=== PATIENT | female | born 1940 | race Caucasian/White ===

== ENCOUNTER 2019-11-07 17:22 | Inpatient (IN) | payer OTHER ==
--- NOTE | 2019-11-07 15:39 | R.PREADM ---
SCREENING DATE AND TIME 11/07/2019 14:15 (CDT) ANTICIPATED REHAB ADMISSION DATE 11/09/2019 REFERRING FACILITY [facility] REFERRAL DATE AND TIME 11/07/2019 14:15 (CDT) REFERRAL OFFICE PHONE [phone] REFERRAL ROOM# [id number] ACUTE ADMIT DATE 11/01/2019 Previous Rehabilitation(s): No. 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 CLINICAL LIAISON a[place]cy Hall PHYSICIAN REVIEWER Dr. Marlon Barney M.D. MR# [id number] NAME PORSHA MARTINEZ ADDRESS [address] [place] [address] [address] [facility] PHONE [facility] [id number] DATE OF 1940 AGE 78 SSN# [id number] GENDER female MARITAL STATUS RACE white ADMIT FROM 02 - [facility] PRE-HOSPITAL LIVING SETTING 01 - Home (private home/apt. board/care, assisted living, skilled nursing, transitional living) HOME TYPE AND DETAILS Type of home: single family house # of levels in the residence: 1 # of steps within the residence: 0 # of steps to enter the residence: 0 PRE-HOSPITAL LIVING WITH Alone FAMILY SUPPORT No PRIMARY FAMILY CONTACT NAME GUY CHEN PRIMARY FAMILY CONTACT PHONE PHONE PRIMARY FAMILY CONTACT ON ADM.? no IS PRIMARY FAMILY CONTACT AUTH. REP.? no 1ST EMERGENCY CONTACT GUY CHEN 1ST CONTACT PHONE PHONE 1ST CONTACT ON ADM. no IS 1ST CONTACT AUTH. REP.? no PHONE 2ND CONTACT ON ADM.? no PATIENT EMPLOYMENT STATUS Retired (for age) PATIENT EMPLOYER No Employer PAYOR INFORMATION: 1ST PAYOR NAME [facility] 1ST PAYOR PHONE [phone] 1ST PAYOR INJURY/ILLNESS DUE TO ACCIDENT? No ANOTHER GREEN PARTY RESPONSIBLE? No PRIMARY REHAB/ACUTE DIAGNOSIS: DVT REHAB IMPAIRMENT CATEGORY (ANGEL): 20 Miscellaneous (Misc) does NOT meet 60% rule PRIMARY DIAGNOSIS-RELATED SURGERIES: No surgeries related to the primary diagnosis were performed. SUMMARY OF ACUTE HOSPITALIZATION: Pt. is a 78 yo Right-handed white female. On 11/01/2019 she was admitted to [facility] with diagnosis DVT. Her impairment category is Debility 16 - Debility (16). Pre-morbidly, Pt. was independent/mod-I in Safety Awareness, Social Cognition, Transfers Control, and Sphincter Control; and she had good Communication and Safety Awareness. Currently, she has deficits of Safety Awareness, Self-Care, Endurance, Locomotion, and Sphincter Cont rol. Pt. is now referred to [facility] for acute in-patient rehabilitation in order to maximize patient's functional independence in activities of daily living, strength, ROM, and mobi lity. Patient has realistic goal of being discharged at assistance level 6-Chase to reside at Home with Pt self. Porsha Martinez is a 78 year old female who lives at home independently. She has pmh of lower extremity, DVT, back pain and depression who presented to the emergency room secondary to right upper extremity swelling and tenderness. Cellulitis of the right arm. Patient was found to have an acute left popliteal DVT as well as nonpurulent cellulitis. She was Admitted at [facility] on 11/01/19.Patient states that she was adherent to her antibiotics when she went home from her first ER visit. She is now being transferred to [facility] Inpatient rehabilitation and is medically stable with relatively stable labs. He is now medically stable but in need of 24 hour nursing, doctor supervision and oversight while receiving active and ongoing intensive hours of therapy a day/15 hours per week and receive care with intensive interdisciplinary approach. COVID-19 screening performed; spoke with patient via phone. Patient denies new onset of fever, cough, difficulty breathing, sore throat, body aches and non-allergy nasal congestion in the past 24 hours. Patient denies travel outside of [place] in the past 14 days. Patient denies any contact with someone who has a confirmed diagnosis of or is under investigation for COVID-19 in the past 14 days. Patient has been tested negative for COVID- 19. PAST MEDICAL HISTORY BACK PAIN PAST SURGICAL HISTORY: BACK SURGERY INTRATHECAL INFUSION PUMP REVISION MEDICATION ALLERGIES: No Known Drug Allergies (NKDA) ENVIRONMENTAL ALLERGIES: - Substance Allergies None Known - Other Allergies None Known CODE STATUS: Full code WEIGHT/HEIGHT/BMI: WEIGHT 200 lbs HEIGHT 5' 11" BMI 27.9 DIET: - Diet Type Regular - Diet - Solid Texture Regular - Diet - Liquid Texture Regular - Tube Feed N/A REVIEW OF SYSTEMS: - Gen Alert and awake Lying in bed No apparent distress Oriented to: person, time, and place - Vital Signs Temperature: 98.8 F SBP/DBP: 160/69 Pulse: 85 Resp: 20 Vital signs stable, afebrile - CVS RRR VITAL SIGNS Temperature: 98.8 F SBP/DBP: 160/69 Pulse: 85 Resp: 20 Vital signs stable, afebrile [id number]].pdf MEDICATIONS/TREATMENT: Other- See attached MAR (Medication Administration Record). CURRENT SPHINCTER CONTROL: Pre-hospital bladder status: unspecified # of bladder accidents in the last 7 days prior to screenin Pre-hospital bowel status: unspecified # of bowel accidents in the last 7 days prior to screenin Last Bowel Movement Date: 11/07/2019 CURRENT LOCOMOTION STATUS: distance walked 3 feet DETAILED CURRENT FUNCTIONAL STATUS: - Bladder accident frequency: Ind - No accidents in the past 7 days - Bowel accident frequency: Ind - No accidents in the past 7 days - Walking score based on distance walked: 0(N/A) score based on distance walked: 1(<=50ft) - Wheelchair score based on distance traveled: 0(N/A) QI SCORES: - Self-Care A. Eating 03-Partial/moderate assistance B. Oral hygiene 03-Partial/moderate assistance C. Toileting hygiene 03-Partial/moderate assistance E. Shower/bathe self 03-Partial/moderate assistance F. Upper body dressing 03-Partial/moderate assistance G. Lower body dressing 02-Substantial/maximal assistance H. Putting on/taking off footwear 88-Not attempted due to medical condition or safety concerns - Mobility A. Roll left and right 03-Partial/moderate assistance B. Sit to lying 03-Partial/moderate assistance C. Lying to sitting on side of bed 03-Partial/moderate assistance D. Sit to stand 03-Partial/moderate assistance E. Chair/fyd-ka-idvye transfer 03-Partial/moderate assistance F. Toilet transfer 03-Partial/moderate assistance G. Car transfer 88-Not attempted due to medical condition or safety concerns I. Walk 10 feet 88-Not attempted due to medical condition or safety concerns J. Walk 50 feet with two turns 88-Not attempted due to medical condition or safety concerns K. Walk 150 feet 88-Not attempted due to medical condition or safety concerns L. Walking 10 feet on uneven surfaces 88-Not attempted due to medical condition or safety concerns M. 1 step (curb) 88-Not attempted due to medical condition or safety concerns N. 4 steps 88-Not attempted due to medical condition or safety concerns O. 12 steps 88-Not attempted due to medical condition or safety concerns P. Picking up object 03-Partial/moderate assistance R. Wheel 50 feet with two turns 88-Not attempted due to medical condition or safety concerns S. Wheel 150 feet 10-Not attempted due to environmental limitations - Bladder and Bowel Bladder continence 0-Always continent Bowel continence 0-Always continent - Endurance Fair - Balance Fair - Safety Awareness Fair CURRENT FUNC. DEFICITS: Self-Care, Safety Awareness, Endurance, Balance, and Mobility CURRENT / PREVIOUS ASSISTIVE DEVICES: Hospital Bed Rolling Walker Shower Chair HISTORY OF FALLS. HAS THE PATIENT HAD TWO OR MORE FALLS IN THE PAST YEAR OR ANY FALL WITH INJURY IN T HE PAST YEAR?: No PRIOR SURGERY. DID THE PATIENT HAVE MAJOR SURGERY DURING THE 100 DAYS PRIOR TO ADMISSION?: No THERAPY NOTES FROM ACUTE CARE: Attached. SPECIAL NEEDS: - Safety Concerns Skin breakdown precautions needed due to skin breakdown risk PATIENT NEEDS ACTIVE AND ONGOING THERAPEUTIC INTERVENTION OF MULTIPLE THERAPY DISCIPLINES, INCLUDING: - Dietary and Nutrition Adequate Nutrition. Nutritional Education. Nutritional Supplements. PATIENT NEEDS CLOSE MEDICAL SUPERVISION BY A REHABILITATION PHYSICIAN FOR: Coordination of Treatment Team PATIENT REQUIRES 24X7 REHAB NURSING FOR MEDICAL AND FUNCTIONAL MGT. OF THE FOLLOWING DEFICITS: Disease Management Medication Management Patient/Family Education Providing Safe Environment PATIENT REQUIRES INTENSIVE, COORDINATED INTERDISCIPLINARY APPROACH TO REHAB: Arranging Home Equipment/Services Discharge Planning Family Intervention/Training Staff Physical Therapy Assistant/Case Management PATIENT REHAB POTENTIAL: Prerna MARTINEZ is able and expected to receive 3 hours of individualized therapy daily on at least 5 of nanette ry 7 days Prerna MARTINEZ's prognosis for significant practical improvement within a reasonable period of time appears Good Expected level of measurable improvement will be of a practical value to Prerna MARTINEZ's functional capaci ty or adaptations to impairments Has a viable Discharge Plan Medically appropriate; condition is sufficiently stable to participate in intensive rehab program DISCHARGE PLAN: - Estimated Length of Stay (days) 13. - Consensus on plan Discharge plan has been discussed with primary caregiver. Patient/Family is in agreement with the lance n. Primary caregiver is in agreement with the plan. - Patient/Family Goals Return home independently. - Planned Living Setting Upon Discharge Home, to live alone. Transitional Living. Primary caregiver: Pt self. RECOMMENDED CARE LEVEL: IRF RECOMMENDATION DETAILS: Recommended Admission to Comprehensive Rehabilitation Program to Increase Functional [place] SCREENER'S COMPLETENESS CONFIRMATION: - Screening Confirmation The patient data collection on this preadmission screening form is finished PHYSICIANS REVIEW AND ADMISSION DETERMINATION Admit - Based on my review of the Pre-Admission Screening results, in my medical judgment and experie nce, I concur with the findings and recommend admission to [facility], as this patient requires an IRF level of care. SIGNATURE PANEL: Player Development Manager - [electronically] signed by Yancy Hall on 11/07/2019 at 15:17 (CDT) Player Development Manager - [electronically] signed by Yancy Hall on 11/07/2019 at 15:13 (CDT) Player Development Manager - [electronically] signed by Yeison Walters PT on 11/07/2019 at 15:23 (CDT) Physician Reviewer - [electronically] signed by Dr. Marlon Barney M.D. on 11/07/2019 at 15:37 (CDT )
[2019-11-07 19:20] LABS: Urine Appearance CLOUDY; Urine Bilirubin NEGATIVE (NEG); Urine Blood 1+ (NEG); Urine Color YELLOW; Urine Glucose NEGATIVE (NEG); Urine Protein NEGATIVE (NEG); Urine Specific Gravity 1.015 (1.005-1.030); Urine Urobilinogen 0.2 mg/dL (0.2-1.0)
[2019-11-07 19:53] LABS: Urine Bacteria <20 /HPF (<20); Urine Culture Reflex Order NOT NEEDED; Urine Mucus 2+ /HPF (NONE SEEN)
[2019-11-07] MEDS: TRAMADOL HCL 50 MG TAB PO PRN (20:37)
[2019-11-07] MEDS: LACTOBACILLUS/ACIDOPHILUS TAB PO SCH (20:37)
[2019-11-07] MEDS: MELATONIN 3 MG TABLET PO SCH (20:38)
[2019-11-07] MEDS: DOXYCYCLINE 100 MG CAP PO SCH (20:38)
[2019-11-07] MEDS: GABAPENTIN 300 MG CAP PO SCH (23:21)
[2019-11-08] MEDS: TRAMADOL HCL 50 MG TAB PO PRN ×3 (02:16→19:34)
[2019-11-08 06:14] LABS: Absolute Lymphocytes (CBC) 4.4 K/uL (0.7-4.9); Basophils % 1.1 % (0-1.3); Hematocrit 34.1 % (36.0-45.0); Lymphocytes % 44.4 % (15.3-44.8); MPV 8.2 fL (7.6-11.3); RBC Red Blood Cell Count 3.88 M/uL (3.86-4.86)
[2019-11-08] MEDS: HYDROCODONE/APAP 5/325 MG TAB PO PRN ×3 (06:24→23:44)
[2019-11-08 06:28] LABS: Albumin 2.8 g/dL (3.4-5.0); Magnesium 2.1 mg/dL (1.8-2.4); Potassium 4.2 mmol/L (3.5-5.1); Prealbumin 19.1 mg/dL (20-40)
[2019-11-08] MEDS: APIXABAN 5 MG TABLET PO SCH ×2 (08:28→19:34)
[2019-11-08] MEDS: LACTOBACILLUS/ACIDOPHILUS TAB PO SCH ×2 (08:28→19:36)
[2019-11-08] MEDS: ANASTROZOLE 1 MG TAB PO SCH (08:28)
[2019-11-08] MEDS: SERTRALINE HCL 50 MG TAB PO SCH (08:28)
[2019-11-08] MEDS: DOXYCYCLINE 100 MG CAP PO SCH ×2 (08:29→19:34)
[2019-11-08] MEDS: MUPIROCIN 2% OINT 22GM TUBE TOP SCH ×2 (08:30→19:35)
[2019-11-08] MEDS: PROMOD 30 ML DOSE PO SCH ×2 (08:31→19:35)
[2019-11-08] MEDS: GABAPENTIN 300 MG CAP PO SCH (08:32)
[2019-11-08] MEDS: LIDOCAINE 4% PATCH TOP SCH (13:03)
--- NOTE | 2019-11-08 19:05 | R.HP ---
FACILITY: [facility] ENCOUNTER DATE AND TIME: 11/08/2019 18:52 (CDT) MR#: [id number] NAME PORSHA MARTINEZ ADDRESS: [address] [place] [address] [address] CITY: [place]IP [address] PHONE: DATE OF : 1940 AGE: 78 SSN# [id number] GENDER: Female DEXTERITY Right-handed MARITAL STATUS RACE White PRE-HOSPITAL LIVING SETTING 01 - Home (private home/apt. board/care, assisted living, [facility], transitional living) PRE-HOSPITAL LIVING WITH Alone ENCOUNTER PHYSICIAN: Dr. Marlon Barney M.D. REFERRING DOCTOR: Dr GARCIA DATE OF ADMISSION: 11/07/2019 15:22 (CDT) REFERRING FACILITY [facility] HOME TYPE AND DETAILS: Type of home: single family house # of levels in the residence: 1 # of steps within the residence: 0 # of steps to enter the residence: 0 ONSET DATE: 11/01/2019 PRIMARY DIAGNOSIS-RELATED SURGERIES: No surgeries related to the primary diagnosis were performed. HISTORY OF PRESENT ILLNESS (HPI): Pt. is a 78 yo Right-handed white female. On 11/01/2019 she was admitted to [facility] with diagnosis Right humerus fracture. Her impairment category is Other orthopedic: 8.9 Pre-morbidly, Pt. was independent/mod-I in Safety Awareness, Social Cognition, Transfers Control, and Sphincter Control; and she had good Communication and Safety Awareness. Currently, she has deficits of Safety Awareness, Self-Care, Endurance, Locomotion, and Sphincter Cont rol. Pt. is now referred to [facility] for acute in-patient rehabilitation in order to maximize patient's functional independence in activities of daily living, strength, ROM, and mobi lity. Patient has realistic goal of being discharged at assistance level 6-Chase to reside at Home with Pt self. Porsha Martinez is a 78 year old female who lives at home independently. She has pmh of lower extremity, DVT, back pain and depression who presented to the emergency room secondary to right upper extremity swelling and tenderness. Cellulitis of the right arm. Patient was found to have an acute left popliteal DVT as well as nonpurulent cellulitis. She was Admitted at [facility] on 11/01/19.Patient states that she was adherent to her antibiotics when she went home from her first ER visit. She is now being transferred to [facility] Inpatient rehabilitation and is medically stable with relatively stable labs. He is now medically stable but in need of 24 hour nursing, doctor supervision and oversight while receiving active and ongoing intensive hours of therapy a day/15 hours per week and receive care with intensive interdisciplinary approach. COVID-19 screening performed; spoke with patient via phone. Patient denies new onset of fever, cough, difficulty breathing, sore throat, body aches and non-allergy nasal congestion in the past 24 hours. Patient denies travel outside of [place] in the past 14 days. Patient denies any contact with someone who has a confirmed diagnosis of or is under investigation for COVID-19 in the past 14 days. Patient has been tested negative for COVID- 19. MEDICATION ALLERGIES: No Known Drug Allergies (NKDA) ENVIRONMENTAL ALLERGIES: - Substance Allergies None Known - Other Allergies None Known PAST MEDICAL HISTORY: BACK PAIN PAST SURGICAL HISTORY: BACK SURGERY INTRATHECAL INFUSION PUMP REVISION SOCIAL HISTORY: - Home Living Alone REVIEW OF SYSTEMS: - Gen No Chills Fatigue No Fever - Eyes No Double Vision No itchiness - ENMT No Difficulty Swallowing - CVS Chest Discomfort No Chest Pain Fatigue No Weight Gain - Resp No Cough No Shortness of Breath - GI Continent No Abdominal Pain No Constipation No Diarrhea - Continent No Kidney Pain No Painful Urination No Urinary Urgency - MSK Joint Pain No Muscle Cramps Stiffness - Skin No Itching No Rash No Suspicious Lesions - Neuro Coordination Difficulty No Difficulty with Concentration No Memory Loss No Seizures Weakness - Psych No Anxiety No Depression No HIV Exposure No Persistent Infections No Seasonal Allergies - Endo No Cold/Heat Intolerance No Excessive Hunger No Excessive Thirst No Excessive Urination PHYSICAL EXAM - Gen Alert and awake Lying in bed No apparent distress Oriented to: person, time, and place - Skin Mild bruising on the right forearm, held in a shoulder sling. Normacephalic - Eyes No abnormalities - ENMT No abnormalities - Neck No abnormalities - CVS RRR - Chest No abnormalities - Resp No wheezing - Abd Soft - GI + bowel sounds Deferred - No abnormalities - Ext Mild right lower extremity edema. - MSK 4+/5 weakness in right lower extremity - Neuro 4/5 strength right lower extremity. - Psych No abnormalities VITAL SIGNS Temperature: 98.8 F SBP/DBP: 136/57 Pulse: 66 Resp: 20 [id number]].pdf NURSING: - Shower allowing shower ACTIVITIES OOB only with supervision QI SCORES: - Self-Care A. Eating 03-Partial/moderate assistance B. Oral hygiene 03-Partial/moderate assistance C. Toileting hygiene 03-Partial/moderate assistance E. Shower/bathe self 03-Partial/moderate assistance F. Upper body dressing 03-Partial/moderate assistance G. Lower body dressing 02-Substantial/maximal assistance H. Putting on/taking off footwear 88-Not attempted due to medical condition or safety concerns - Mobility A. Roll left and right 03-Partial/moderate assistance B. Sit to lying 03-Partial/moderate assistance C. Lying to sitting on side of bed 03-Partial/moderate assistance D. Sit to stand 03-Partial/moderate assistance E. Chair/xrc-tt-wzbpt transfer 03-Partial/moderate assistance F. Toilet transfer 03-Partial/moderate assistance G. Car transfer 88-Not attempted due to medical condition or safety concerns I. Walk 10 feet 88-Not attempted due to medical condition or safety concerns J. Walk 50 feet with two turns 88-Not attempted due to medical condition or safety concerns K. Walk 150 feet 88-Not attempted due to medical condition or safety concerns L. Walking 10 feet on uneven surfaces 88-Not attempted due to medical condition or safety concerns M. 1 step (curb) 88-Not attempted due to medical condition or safety concerns N. 4 steps 88-Not attempted due to medical condition or safety concerns O. 12 steps 88-Not attempted due to medical condition or safety concerns P. Picking up object 03-Partial/moderate assistance R. Wheel 50 feet with two turns 88-Not attempted due to medical condition or safety concerns S. Wheel 150 feet 10-Not attempted due to environmental limitations - Bladder and Bowel Bladder continence 0-Always continent Bowel continence 0-Always continent - Endurance Fair - Balance Fair - Safety Awareness Fair CURRENT FUNC. DEFICITS: Self-Care, Safety Awareness, Endurance, Balance, and Mobility MEDICATIONS: - Other See attached MAR (Medication Administration Record) ASSESSMENT: Pt. is a 78 yo Right-handed white female.On 11/01/2019 she was admitted to [facility] with diagnosis Right humerus fracture, NWB.Her impairment category is Debility 16 - Debility (16).Pre-morbidly, Pt. was i ndependent/mod-I in Safety Awareness, Social Cognition, Transfers Control, and Sphincter Control; and she had good Communication and Safety Awareness.Currently, she has deficits of Safety Awareness, Dawn f-Care, Endurance, Locomotion, and Sphincter Control.Pt. is now referred to [facility] for acute in-patient rehabilitation in order to maximize patient's functional independence i n activities of daily living, strength, ROM, and mobility.- Rehab Goal Patient has realistic goal of being discharged at assistance level 6-Chase to reside at Home with Pt self. Porsha Martinez is a 78 year old female who lives at home independently. She has pmh of lower extremity, DVT, back pain and depression who presented to the emergency room secondary to right upper extremity swelling and tenderness. Cellulitis of the right arm. Patient was found to have an acute left popliteal DVT as well as nonpurulent cellulitis. She was Admitted at [facility] on 11/01/19.Patient states that she was adherent to her antibiotics when she went home from her first ER visit. She is now being transferred to [facility] Inpatient rehabilitation and is medically stable with relatively stable labs. He is now medically stable but in need of 24 hour nursing, doctor supervision and oversight while receiving active and ongoing intensive hours of therapy a day/15 hours per week and receive care with intensive interdisciplinary approach. COVID-19 screening performed; spoke with patient via phone. Patient denies new onset of fever, cough, difficulty breathing, sore throat, body aches and non-allergy nasal congestion in the past 24 hours. Patient denies travel outside of [place] in the past 14 days. Patient denies any contact with someone who has a confirmed diagnosis of or is under investigation for COVID-19 in the past 14 days. Patient has been tested negative for COVID- 19.REHAB PLAN: - Physical Therapy Weakness - to improve, our physical therapists will perform initial evaluation of pt's status upon a dmission and devise an individualized program for Aquatic Therapy, Neuromuscular Reeducation, and Str engthening Need in caregiver upon discharge - to improve, our physical therapists will perform initial evaluati on of pt's status upon admission and devise an individualized program for Caregiver Training Poor endurance - to improve, our physical therapists will perform initial evaluation of pt's status upon admission and devise an individualized program for Endurance Training Gait dysfunction - to improve, our physical therapists will perform initial evaluation of pt's statu s upon admission and devise an individualized program for Gait Training, and Wheel Chair mobility Need for home safety evaluation - to improve, our physical therapists will perform initial evaluatio n of pt's status upon admission and devise an individualized program for Home Evaluation New precaution - to improve, our physical therapists will perform initial evaluation of pt's status upon admission and devise an individualized program for Patient precaution education Edema - to improve, our physical therapists will perform initial evaluation of pt's status upon admi ssion and devise an individualized program for Elevation Training, and Lymphedema Therapy - Occupational Therapy Weakness - to improve, our occupation therapists will perform initial evaluation of pt's status upon admission and devise an individualized program for Aquatic Therapy, Balance, Endurance, UE ROM, and UE strengthening ADL deficits - to improve, our occupation therapists will perform initial evaluation of pt's status upon admission and devise an individualized program for Bathing, Bed mobility, Community Reintegratio n, Cooking, Dressing, Eating, Fine Motor Skills, Grooming, Homemaking, Kitchen Mobility, Laundry, Pat ient Education, Safety Awareness, Splinting - Positioning, Transfers(Toilet, Tub, Shower), and Wheel Chair Management Need for manager intensive care unit - to improve, our occupation therapists will perform initial evaluation of pt's status upon admission and devise an individualized program for Caregiver Training - Balance for Weakness - Bed mobility for ADL deficits MEDICAL PLAN: - Diet Type Start Regular - Diet - Liquid Texture Start Regular - Tube Feed Start N/A - Other See attached MAR (Medication Administration Record) - Diet - Solid Texture Regular - Shower shower DISCHARGE PLAN: - Estimated Length of Stay (days) 13. - Consensus on plan Discharge plan has been discussed with primary caregiver. Patient/Family is in agreement with the lance n. Primary caregiver is in agreement with the plan. - Patient/Family Goals Return home independently. - Planned Living Setting Upon Discharge Home, to live alone. Transitional Living. Primary caregiver: Pt self. SIGNATURE PANEL: (CDT)
--- NOTE | 2019-11-08 19:06 | PAPE ---
PATIENT: [facility] MR# [id number] REFERRING DOCTOR Dr GARCIA EVALUATION DATE AND TIME 11/08/2019 19:05 (CDT) NAME PORSHA ANN DATE OF 1940 AGE 78 PHONE SSN# [id number] GENDER female EVALUATING PHYSICIAN Dr. Marlon Barney M.D. ADMISSION DIAGNOSIS: Right humerus fracture, NWB ONSET DATE 11/01/2019 POST-ADMISSION FUNCTIONAL/MEDICAL STATUS: - Bladder Same accident frequency: Ind - No accidents in the past 7 days - Bowel Same accident frequency: Ind - No accidents in the past 7 days - Walking Same score based on distance walked: 0(N/A) Same score based on distance walked: 1(<=50ft) - Wheelchair Same score based on distance traveled: 0(N/A) STATUS CHANGE EVALUATION: No change in Functional or Medical Status is identified compared with Pre-Admission screening. PATIENT NEEDS CLOSE MEDICAL SUPERVISION BY A REHABILITATION PHYSICIAN FOR: Coordination of Treatment Team PATIENT REQUIRES 24X7 REHAB NURSING FOR MEDICAL AND FUNCTIONAL MGT. OF THE FOLLOWING DEFICITS: Disease Management Medication Management Patient/Family Education Providing Safe Environment PATIENT REQUIRES INTENSIVE, COORDINATED INTERDISCIPLINARY APPROACH TO REHAB: Arranging Home Equipment/Services Discharge Planning Family Intervention/Training Shake Packer/Case Management LIST OF IDENTIFIED AND POTENTIAL PROBLEMS: Alteration in leisure activities Bladder, Incontinence Bowel, Incontinence Infection, Actual or Potential Mobility Impaired Pain, Alteration in Comfort Self Care Deficit Skin Integrity, Actual or Potential Urinary Tract Infection (UTI), Actual or Potential PATIENT COULD BE AT RISK FOR COMPLICATIONS FROM ADVERSE MEDICAL CONDITIONS DUE TO HIS/HER COMORBIDITI ES AND THE RIGORS OF THE INTENSIVE REHABILLITATION PROGRAM. METHODS OR INTERVENTIONS TO AVOID COMPLIC ATIONS INCLUDE: - Infection Clinical staff to assess and manage the signs and symptoms of infection including fever, redness, war mth, etc. - Urinary Tract Infection - Falls Patient will be evaluated for Fall Precautions and will be placed on Fall Precautions as indicated pe r protocol. - Skin Breakdown Nursing will assess skin daily using assessment tool and will place on Skin Breakdown Precautions as indicated per protocol. - Pain Clinical staff may employ non-medication methods such as massage, distraction, decrease stimulus, etc . as needed. Clinical staff will assess patient's pain level every shift per protocol to assess and e nsure pain management effectiveness. Medications will be given and the pain level re-assessed. PRELIMINARY PLAN OF CARE: - Physical Therapy Patient needs Physical Therapy for a daily minimum of 1.5 hours at least 5 out of 7 days, to improve: Mobility, Strengthening, Transfers, Stretching, ROM, Endurance, Ability to manage stairs, Gait, and Balance. - Speech Therapy Patient needs Speech Therapy for a daily minimum of 0.5 hours at least 5 out of 7 days, to improve: S wallowing, Cognition, Language Skills, and Compensatory Strategies. - Rehabilitation Nursing Patient requires 24x7 Rehabilitation Nursing for: Pain Issues, Identifying and preventing risk factor s, Monitoring and reporting current medical conditions, Assisting with ambulation and transfer, Gogo ting with all ADL-s, Teaching patients about disease process and medications, Family teaching, Provid ing safe environment, Bowel and Bladder Issues, Skin Integrity, and Medication Management. Patient needs Shake Packer and/or Case Management for: Discharge Planning, Arranging Home Equipmen t or Services, and Family Interventions. - Dietary and Nutrition Services Patient needs Dietary and Nutrition Services for: Adequate Nutrition, Nutritional Supplements, and Nu tritional Education. - Occupational Therapy Patient needs Occupational Therapy for a daily minimum of 1.5 hours at least 5 out of 7 days, to impr ove Activities of Daily Living, including: Eating, Grooming, Bathing, Dressing, Toileting, Toilet Tra nsfers, Community Reintegration, Higher functional activities, Adaptive Equipment, Splinting, Househo ld Tasks, and Other activities as determined. QI SCORES: - Self-Care A. Eating 03-Partial/moderate assistance B. Oral hygiene 03-Partial/moderate assistance C. Toileting hygiene 03-Partial/moderate assistance E. Shower/bathe self 03-Partial/moderate assistance F. Upper body dressing 03-Partial/moderate assistance G. Lower body dressing 02-Substantial/maximal assistance H. Putting on/taking off footwear 88-Not attempted due to medical condition or safety concerns - Mobility A. Roll left and right 03-Partial/moderate assistance B. Sit to lying 03-Partial/moderate assistance C. Lying to sitting on side of bed 03-Partial/moderate assistance D. Sit to stand 03-Partial/moderate assistance E. Chair/kzc-zc-emccl transfer 03-Partial/moderate assistance F. Toilet transfer 03-Partial/moderate assistance G. Car transfer 88-Not attempted due to medical condition or safety concerns I. Walk 10 feet 88-Not attempted due to medical condition or safety concerns J. Walk 50 feet with two turns 88-Not attempted due to medical condition or safety concerns K. Walk 150 feet 88-Not attempted due to medical condition or safety concerns L. Walking 10 feet on uneven surfaces 88-Not attempted due to medical condition or safety concerns M. 1 step (curb) 88-Not attempted due to medical condition or safety concerns N. 4 steps 88-Not attempted due to medical condition or safety concerns O. 12 steps 88-Not attempted due to medical condition or safety concerns P. Picking up object 03-Partial/moderate assistance R. Wheel 50 feet with two turns 88-Not attempted due to medical condition or safety concerns S. Wheel 150 feet 10-Not attempted due to environmental limitations - Bladder and Bowel Bladder continence 0-Always continent Bowel continence 0-Always continent - Endurance Fair - Balance Fair - Safety Awareness Fair POTENTIAL FUNCTIONAL GOALS FOR PATIENT TO ACHIEVE BY DISCHARGE: - Safety Precaution Patient will remain free from falls or injury at time of discharge. - Bed Mobility Patient will perform bed mobility at 4-Juan level of assistance. - Transfers Patient will complete transfers from bed to chair at 4-Juan level of assistance. - Mobility Patient will ambulate 150 ft with 4-Juan level of assistance with RW. PATIENT REHAB POTENTIAL Prerna ANN is able and expected to receive 3 hours of individualized therapy daily on at least 5 of nanette ry 7 days Prerna ANN's prognosis for significant practical improvement within a reasonable period of time appears Good Expected level of measurable improvement will be of a practical value to Prerna ANN's functional capaci ty or adaptations to impairments Has a viable Discharge Plan Medically appropriate; condition is sufficiently stable to participate in intensive rehab program DISCHARGE PLAN: - Estimated Length of Stay (days) 13. - Consensus on plan Discharge plan has been discussed with primary caregiver. Patient/Family is in agreement with the lance n. Primary caregiver is in agreement with the plan. - Patient/Family Goals Return home independently. - Planned Living Setting Upon Discharge Home, to live alone. Transitional Living. Primary caregiver: Pt self. CONCLUSION ON REHABILITATION NECESSITY: I have evaluated patient's pre-admission functional status and, comparing it to the patient's post-ad mission functional status now, I conclude that the pre-admission assessment was accurate. Patient's c ondition on admission supports the medical necessity of admission to IR[facility]. It is safe to proceed with patient's therapy program. SIGNATURE PANEL: (CDT)
[2019-11-08] MEDS: DOCUSATE NA/SENNA CONC 1 TAB PO PRN (19:34)
[2019-11-08] MEDS: GABAPENTIN 400 MG CAP PO SCH (19:34)
[2019-11-08] MEDS: MELATONIN 3 MG TABLET PO SCH (19:35)
[2019-11-09] MEDS: LIDOCAINE 4% PATCH TOP SCH (07:43)
[2019-11-09] MEDS: HYDROCODONE/APAP 5/325 MG TAB PO PRN ×3 (07:45→19:53)
[2019-11-09] MEDS: GABAPENTIN 400 MG CAP PO SCH ×2 (07:46→20:58)
[2019-11-09] MEDS: DOXYCYCLINE 100 MG CAP PO SCH ×2 (07:46→20:58)
[2019-11-09] MEDS: SERTRALINE HCL 50 MG TAB PO SCH (07:47)
[2019-11-09] MEDS: ANASTROZOLE 1 MG TAB PO SCH (07:47)
[2019-11-09] MEDS: APIXABAN 5 MG TABLET PO SCH ×2 (07:47→20:57)
[2019-11-09] MEDS: LACTOBACILLUS/ACIDOPHILUS TAB PO SCH ×2 (07:47→20:57)
[2019-11-09] MEDS: PROMOD 30 ML DOSE PO SCH ×2 (07:48→20:59)
[2019-11-09] MEDS: MUPIROCIN 2% OINT 22GM TUBE TOP SCH ×2 (08:00→21:00)
[2019-11-09] MEDS: TRAMADOL HCL 50 MG TAB PO PRN ×2 (13:44→22:26)
--- NOTE | 2019-11-09 16:10 | FAST ---
SHIFT START DATE/TIME: 11/09/2019 07:00 (CDT) SHIFT END DATE/TIME: 11/09/2019 19:00 (CDT) NAME PORSHA ANN DATE OF : 1940 DATE OF ADMISSION: 11/07/2019 15:22 (CDT) PHONE: AGE: 78 N# [id number] GENDER: Female ENCOUNTER PHYSICIAN: Dr. Marlon Barney M.D. ADMISSION DIAGNOSIS: - Debility 16 - Debility (16) Right humerus fracture, NWB. EATING: EATING - STEP 1: Does the patient complete the activity by him/herself with no assistance (physical, verbal/nonverbal cueing, setup/clean-up)? No. EATING - STEP 2: Does the patient need only setup/clean-up assistance from one helper? No. EATING - STEP 3: Does the patient need only verbal/nonverbal cueing or touching/steadying/contact guard assistance fro m one helper? Yes. 1. [id number] ADMISSION PERFORMANCE: Supervision or touching assistance CODE: 04 ORAL HYGIENE: Not assessed/no information CODE: - TOILETING HYGIENE: TOILETING HYGIENE - STEP 1: Does the patient complete the activity by him/herself with no assistance (physical, verbal/nonverbal cueing, setup/clean-up)? No. TOILETING HYGIENE - STEP 2: Does the patient need only setup/clean-up assistance from one helper? No. TOILETING HYGIENE - STEP 3: Does the patient need only verbal/nonverbal cueing or touching/steadying/contact guard assistance fro m one helper? Yes. 1. [id number] ADMISSION PERFORMANCE: Supervision or touching assistance CODE: 04 BATHING: Not assessed/no information CODE: - DRESSING - UPPER BODY: DRESSING - UPPER BODY - STEP 1: Does the patient complete the activity by him/herself with no assistance (physical, verbal/nonverbal cueing, setup/clean-up)? No. DRESSING - UPPER BODY - STEP 2: Does the patient need only setup/clean-up assistance from one helper? No. DRESSING - UPPER BODY - STEP 3: Does the patient need only verbal/nonverbal cueing or touching/steadying/contact guard assistance fro m one helper? No. DRESSING - UPPER BODY - STEP 4: Does the patient need physical assistance - for example lifting or trunk support from one helper - wi th the helper providing less than half of the effort? No. DRESSING - UPPER BODY - STEP 5: Does the patient need physical assistance - for example lifting or trunk support from one helper - wi th the helper providing more than half of the effort? Yes. 1. [id number] ADMISSION PERFORMANCE: Substantial/maximal assistance CODE: 02 DRESSING - LOWER BODY: DRESSING - LOWER BODY - STEP 1: Does the patient complete the activity by him/herself with no assistance (physical, verbal/nonverbal cueing, setup/clean-up)? No. DRESSING - LOWER BODY - STEP 2: Does the patient need only setup/clean-up assistance from one helper? No. DRESSING - LOWER BODY - STEP 3: Does the patient need only verbal/nonverbal cueing or touching/steadying/contact guard assistance fro m one helper? No. DRESSING - LOWER BODY - STEP 4: Does the patient need physical assistance - for example lifting or trunk support from one helper - wi th the helper providing less than half of the effort? No. DRESSING - LOWER BODY - STEP 5: Does the patient need physical assistance - for example lifting or trunk support from one helper - wi th the helper providing more than half of the effort? Yes. 1. [id number] ADMISSION PERFORMANCE: Substantial/maximal assistance CODE: 02 PUTTING ON/TAKING OFF FOOTWEAR: FOOTWEAR - STEP 1: Does the patient complete the activity by him/herself with no assistance (physical, verbal/nonverbal cueing, setup/clean-up)? No. FOOTWEAR - STEP 2: Does the patient need only setup/clean-up assistance from one helper? No. FOOTWEAR - STEP 3: Does the patient need only verbal/nonverbal cueing or touching/steadying/contact guard assistance fro m one helper? No. FOOTWEAR - STEP 4: Does the patient need physical assistance - for example lifting or trunk support from one helper - wi th the helper providing less than half of the effort? No. FOOTWEAR - STEP 5: Does the patient need physical assistance - for example lifting or trunk support from one helper - wi th the helper providing more than half of the effort? Yes. 1. [id number] ADMISSION PERFORMANCE: Substantial/maximal assistance CODE: 02 SIT TO LYING: SIT TO LYING - STEP 1: Does the patient complete the activity by him/herself with no assistance (physical, verbal/nonverbal cueing, setup/clean-up)? No. SIT TO LYING - STEP 2: Does the patient need only setup/clean-up assistance from one helper? No. SIT TO LYING - STEP 3: Does the patient need only verbal/nonverbal cueing or touching/steadying/contact guard assistance fro m one helper? Yes. 1. [id number] ADMISSION PERFORMANCE: Supervision or touching assistance CODE: 04 LYING TO SITTING: LYING TO SITTING ON SIDE OF BED - STEP 1: Does the patient complete the activity by him/herself with no assistance (physical, verbal/nonverbal cueing, setup/clean-up)? No. LYING TO SITTING ON SIDE OF BED - STEP 2: Does the patient need only setup/clean-up assistance from one helper? No. LYING TO SITTING ON SIDE OF BED - STEP 3: Does the patient need only verbal/nonverbal cueing or touching/steadying/contact guard assistance fro m one helper? Yes. 1. [id number] ADMISSION PERFORMANCE: Supervision or touching assistance CODE: 04 SIT TO STAND: SIT TO STAND - STEP 1: Does the patient complete the activity by him/herself with no assistance (physical, verbal/nonverbal cueing, setup/clean-up)? No. SIT TO STAND - STEP 2: Does the patient need only setup/clean-up assistance from one helper? No. SIT TO STAND - STEP 3: Does the patient need only verbal/nonverbal cueing or touching/steadying/contact guard assistance fro m one helper? Yes. 1. [id number] ADMISSION PERFORMANCE: Supervision or touching assistance CODE: 04 TRANSFERS: BED, CHAIR: CHAIR/OAE-AF-DIUXO TRANSFER - STEP 1: Does the patient complete the activity by him/herself with no assistance (physical, verbal/nonverbal cueing, setup/clean-up)? No. CHAIR/GFM-PD-[id number] TRANSFER - STEP 2: Does the patient need only setup/clean-up assistance from one helper? No. CHAIR/MRS-CT-GAGDG TRANSFER - STEP 3: Does the patient need only verbal/nonverbal cueing or touching/steadying/contact guard assistance fro m one helper? Yes. 1. [id number] ADMISSION PERFORMANCE: Supervision or touching assistance CODE: 04 TRANSFER TOILET: TOILET TRANSFER - STEP 1: Does the patient complete the activity by him/herself with no assistance (physical, verbal/nonverbal cueing, setup/clean-up)? No. TOILET TRANSFER - STEP 2: Does the patient need only setup/clean-up assistance from one helper? Yes. 1. [id number] ADMISSION PERFORMANCE: Setup or clean-up assistance CODE: 05 TRANSFERS: CAR: Not assessed/no information CODE: - WALK 10 FEET: Not assessed/no information CODE: - 1 STEP (CURB): Not assessed/no information CODE: - PICKING UP OBJECT: Not assessed/no information CODE: - DOES THE PATIENT USE A WHEELCHAIR/SCOOTER? Q1. DOES THE PATIENT USE A WHEELCHAIR/SCOOTER?: Yes CODE: 1 WHEEL 50 FEET WITH TWO TURNS: Not assessed/no information CODE: - INDICATE THE TYPE OF WHEELCHAIR/SCOOTER USED: RR1. INDICATE THE TYPE OF WHEELCHAIR/SCOOTER USED.: Manual CODE: 1 WHEEL 150 FEET: Not assessed/no information CODE: - INDICATE THE TYPE OF WHEELCHAIR/SCOOTER USED: SS1. INDICATE THE TYPE OF WHEELCHAIR/SCOOTER USED.: Manual CODE: 1 BLADDER AND BOWEL: H350. BLADDER CONTINENCE (3-DAY ASSESSMENT PERIOD): Always continent (no documented incontinence) CODE: 0 H400. BOWEL CONTINENCE (3-DAY ASSESSMENT PERIOD): Always continent CODE: 0 SIGNATURE PANEL: The following modified sections: 1. [id number] Admission Performance, 1. [id number] Admission Performance, 1. [id number] Admission Performance, 1. [id number] Admission Performance, 1. RT1604b Admission Performance, 1. [id number] Admission Performance, 1. [id number] Admission Performance, 1. [id number] Admission Performance , 1. [id number] Admission Performance, 1. [id number] Admission Performance, 1. [id number] Admission Performanc e, Q1. Does the patient use a wheelchair/scooter?, RR1. Indicate the type of wheelchair/scooter used. , Code, SS1. Indicate the type of wheelchair/scooter used., H350. Bladder Continence (3-day assessmen t period), H400. Bowel Continence (3-day assessment period) were [electronically] signed by Segundo De La GarzaNJose Angel on ThuNov 09 2019 16:09:10 GMT-0500 (Central Daylight Time)
[2019-11-09] MEDS ORDERED: LORAZEPAM 0.5 MG TABLET PO PRN (18:22)
--- NOTE | 2019-11-09 20:00 | R.PN ---
ENCOUNTER DATE AND TIME: 11/09/2019 19:55 (CDT) NAME PORSHA ANN DATE OF : 1940 DATE OF ADMISSION: 11/07/2019 15:22 (CDT) Right humerus fracture, [id number] COMPLAINT: Right hip fracture SUBJECTIVE: Pt denied any Shortness of Breath. Pt denied any depression. CBC with differential is essentially normal. Prealbumin is 19.1, glucose 116. Ambulated 150' with contact guard assistance using a rolling walker. VITAL SIGNS Temperature: 97.4 F SBP/DBP: 170/76 Pulse: 74 Resp: 16 [id number]].pdf MEDICATION ALLERGIES: No Known Drug Allergies (NKDA) ENVIRONMENTAL ALLERGIES: - Substance Allergies None Known - Other Allergies None Known NURSING: - Shower allowing shower ACTIVITIES OOB only with supervision THERAPIES: - Dietary and Nutrition Adequate Nutrition. Nutritional Education. Nutritional Supplements. PHYSICAL EXAM - Gen Alert and awake Lying in bed No apparent distress Oriented to: person, time, and place - Skin Mild bruising on the right forearm, held in a shoulder sling. Normacephalic - Eyes No abnormalities - ENMT No abnormalities - Neck No abnormalities - CVS RRR - Chest No abnormalities - Resp No wheezing - Abd Soft - GI + bowel sounds Deferred - No abnormalities - Ext Mild right lower extremity edema. - MSK 4+/5 weakness in right lower extremity - Neuro 4/5 strength right lower extremity. - Psych No abnormalities ASSESSMENT: Pt. is a 78 yo Right-handed white female.On 11/01/2019 she was admitted to [facility] with diagnosis Right humerus fracture.On 11/01/2019 she was admitted to [facility] with diagnosis Right humerus fracture, NWB.He r impairment category is Other orthopedic: 8.9Her impairment category is Debility 16 - Debility (16) .Pre-morbidly, Pt. was independent/mod-I in Safety Awareness, Social Cognition, Transfers Control, an d Sphincter Control; and she had good Communication and Safety Awareness.Currently, she has deficits of Safety Awareness, Self-Care, Endurance, Locomotion, and Sphincter Control.Pt. is now referred to [facility] for acute in-patient rehabilitation in order to maximize patient's f unctional independence in activities of daily living, strength, ROM, and mobility.- Rehab Goal Patient has realistic goal of being discharged at assistance level 6-Chase to reside at Home with Pt self. MDM/PLAN: - Physical Therapy Weakness - to improve, our physical therapists will perform initial evaluation of pt's status upon ad mission and devise an individualized program for Aquatic Therapy, Neuromuscular Reeducation, and Stre ngthening Need in caregiver upon discharge - to improve, our physical therapists will perform initial evaluatio n of pt's status upon admission and devise an individualized program for Caregiver Training Poor endurance - to improve, our physical therapists will perform initial evaluation of pt's status u los admission and devise an individualized program for Endurance Training Gait dysfunction - to improve, our physical therapists will perform initial evaluation of pt's status upon admission and devise an individualized program for Gait Training, and Wheel Chair mobility Need for home safety evaluation - to improve, our physical therapists will perform initial evaluation of pt's status upon admission and devise an individualized program for Home Evaluation New precaution - to improve, our physical therapists will perform initial evaluation of pt's status u los admission and devise an individualized program for Patient precaution education Edema - to improve, our physical therapists will perform initial evaluation of pt's status upon admis constantin and devise an individualized program for Elevation Training, and Lymphedema Therapy - Occupational Therapy Weakness - to improve, our occupation therapists will perform initial evaluation of pt's status upon admission and devise an individualized program for Aquatic Therapy, Balance, Endurance, UE ROM, and U E strengthening ADL deficits - to improve, our occupation therapists will perform initial evaluation of pt's status u los admission and devise an individualized program for Bathing, Bed mobility, Community Reintegration , Cooking, Dressing, Eating, Fine Motor Skills, Grooming, Homemaking, Kitchen Mobility, Laundry, Mary ent Education, Safety Awareness, Splinting - Positioning, Transfers(Toilet, Tub, Shower), and Wheel C hair Management Need for child care provider - to improve, our occupation therapists will perform initial evaluation of pt's s tatus upon admission and devise an individualized program for Caregiver Training - Other See attached MAR (Medication Administration Record) - Diet Type Continue Regular - Diet - Liquid Texture Continue Regular - Tube Feed Continue N/A - Diet - Solid Texture Continue Regular - Shower allowing shower - Balance for Weakness - Bed mobility for ADL deficits FUNCTIONAL STATUS: UPDATED AT WEEKLY TEAM CONFERENCE - Bladder Same accident frequency: 7-Ind - No accidents in the past 7 days - Bowel Same accident frequency: 7-Ind - No accidents in the past 7 days - Walking Same score based on distance walked: 0(N/A) Same score based on distance walked: 1(<=50ft) - Wheelchair Same score based on distance traveled: 0(N/A) FUNCTIONAL STATUS: - Self-Care A. Eating Ind B. Grooming Chase C. Bathing Juan D. Dressing - Upper Juan E. Dressing - Lower modA F. Toileting Juan - Sphincter Control G. Bladder control Chase H. Bowel control Chase - Transfers Control I. Bed/Chair/Wheelchair Juan J. Toilet Juan K. Tub/Shower modA - Locomotion L. Walk/Wheelchair (B) Juan M. Stairs maxA - Communication N. Comprehension (B) Chase O. Expression (B) Chase - Social Cognition P. Social Interaction Ind Q. Problem Solving sup R. Memory Chase - Endurance Fair - Balance Fair - Safety Awareness Fair QI SCORES: - Self-Care A. Eating 03-Partial/moderate assistance B. Oral hygiene 03-Partial/moderate assistance C. Toileting hygiene 03-Partial/moderate assistance E. Shower/bathe self 03-Partial/moderate assistance F. Upper body dressing 03-Partial/moderate assistance G. Lower body dressing 02-Substantial/maximal assistance H. Putting on/taking off footwear 88-Not attempted due to medical condition or safety concerns - Mobility A. Roll left and right 03-Partial/moderate assistance B. Sit to lying 03-Partial/moderate assistance C. Lying to sitting on side of bed 03-Partial/moderate assistance D. Sit to stand 03-Partial/moderate assistance E. Chair/eii-rj-emetz transfer 03-Partial/moderate assistance F. Toilet transfer 03-Partial/moderate assistance G. Car transfer 88-Not attempted due to medical condition or safety concerns I. Walk 10 feet 88-Not attempted due to medical condition or safety concerns J. Walk 50 feet with two turns 88-Not attempted due to medical condition or safety concerns K. Walk 150 feet 88-Not attempted due to medical condition or safety concerns L. Walking 10 feet on uneven surfaces 88-Not attempted due to medical condition or safety concerns M. 1 step (curb) 88-Not attempted due to medical condition or safety concerns N. 4 steps 88-Not attempted due to medical condition or safety concerns O. 12 steps 88-Not attempted due to medical condition or safety concerns P. Picking up object 03-Partial/moderate assistance R. Wheel 50 feet with two turns 88-Not attempted due to medical condition or safety concerns S. Wheel 150 feet 10-Not attempted due to environmental limitations - Bladder and Bowel Bladder continence 0-Always continent Bowel continence 0-Always continent - Endurance Fair - Balance Fair - Safety Awareness Fair CURRENT [facility]. DEFICITS: Self-Care, Safety Awareness, Endurance, Balance, and Mobility SIGNATURE PANEL: (CDT)
[2019-11-09] MEDS: MELATONIN 3 MG TABLET PO SCH (20:58)
[2019-11-10] MEDS: HYDROCODONE/APAP 5/325 MG TAB PO PRN ×4 (02:09→18:40)
[2019-11-10] MEDS: TRAMADOL HCL 50 MG TAB PO PRN ×4 (03:51→22:38)
[2019-11-10] MEDS: LACTOBACILLUS/ACIDOPHILUS TAB PO SCH ×2 (07:56→19:53)
[2019-11-10] MEDS: LIDOCAINE 4% PATCH TOP SCH (07:56)
[2019-11-10] MEDS: ANASTROZOLE 1 MG TAB PO SCH (07:57)
[2019-11-10] MEDS: DOXYCYCLINE 100 MG CAP PO SCH ×2 (07:57→19:53)
[2019-11-10] MEDS: APIXABAN 5 MG TABLET PO SCH ×2 (07:58→19:53)
[2019-11-10] MEDS: SERTRALINE HCL 50 MG TAB PO SCH (07:58)
[2019-11-10] MEDS: MUPIROCIN 2% OINT 22GM TUBE TOP SCH ×2 (07:59→19:52)
[2019-11-10] MEDS: GABAPENTIN 400 MG CAP PO SCH ×2 (07:59→19:53)
[2019-11-10] MEDS: PROMOD 30 ML DOSE PO SCH ×2 (08:00→19:54)
[2019-11-10] MEDS: ONDANSETRON 4 MG (ODT) TAB PO PRN (09:01)
--- NOTE | 2019-11-10 14:49 | FAST ---
ENCOUNTER DATE AND TIME: 11/10/2019 08:00 (CDT) NAME PORSHA ANN DATE OF : 1940 DATE OF ADMISSION: 11/07/2019 15:22 (CDT) PHONE: AGE: 78 N# [id number] GENDER: Female ENCOUNTER PHYSICIAN: Dr. Marlon Barney M.D. ADMISSION DIAGNOSIS: - Debility 16 - Debility (16) Right humerus fracture, NWB. EATING: Not assessed/no information CODE: - ORAL HYGIENE: ORAL HYGIENE - STEP 1: Does the patient complete the activity by him/herself with no assistance (physical, verbal/nonverbal cueing, setup/clean-up)? No. ORAL HYGIENE - STEP 2: Does the patient need only setup/clean-up assistance from one helper? No. ORAL HYGIENE - STEP 3: Does the patient need only verbal/nonverbal cueing or touching/steadying/contact guard assistance fro m one helper? Yes. 1. [id number] ADMISSION PERFORMANCE: Supervision or touching assistance CODE: 04 TOILETING HYGIENE: Not assessed/no information CODE: - BATHING: SHOWER/BATHE SELF - STEP 1: Does the patient complete the activity by him/herself with no assistance (physical, verbal/nonverbal cueing, setup/clean-up)? No. SHOWER/BATHE SELF - STEP 2: Does the patient need only setup/clean-up assistance from one helper? No. SHOWER/BATHE SELF - STEP 3: Does the patient need only verbal/nonverbal cueing or touching/steadying/contact guard assistance fro m one helper? Yes. 1. [id number] ADMISSION PERFORMANCE: Supervision or touching assistance CODE: 04 DRESSING - UPPER BODY: DRESSING - UPPER BODY - STEP 1: Does the patient complete the activity by him/herself with no assistance (physical, verbal/nonverbal cueing, setup/clean-up)? No. DRESSING - UPPER BODY - STEP 2: Does the patient need only setup/clean-up assistance from one helper? No. DRESSING - UPPER BODY - STEP 3: Does the patient need only verbal/nonverbal cueing or touching/steadying/contact guard assistance fro m one helper? No. DRESSING - UPPER BODY - STEP 4: Does the patient need physical assistance - for example lifting or trunk support from one helper - wi th the helper providing less than half of the effort? Yes. 1. [id number] ADMISSION PERFORMANCE: Partial/moderate assistance CODE: 03 DRESSING - LOWER BODY: DRESSING - LOWER BODY - STEP 1: Does the patient complete the activity by him/herself with no assistance (physical, verbal/nonverbal cueing, setup/clean-up)? No. DRESSING - LOWER BODY - STEP 2: Does the patient need only setup/clean-up assistance from one helper? No. DRESSING - LOWER BODY - STEP 3: Does the patient need only verbal/nonverbal cueing or touching/steadying/contact guard assistance fro m one helper? No. DRESSING - LOWER BODY - STEP 4: Does the patient need physical assistance - for example lifting or trunk support from one helper - wi th the helper providing less than half of the effort? No. DRESSING - LOWER BODY - STEP 5: Does the patient need physical assistance - for example lifting or trunk support from one helper - wi th the helper providing more than half of the effort? Yes. 1. [id number] ADMISSION PERFORMANCE: Substantial/maximal assistance CODE: 02 PUTTING ON/TAKING OFF FOOTWEAR: FOOTWEAR - STEP 1: Does the patient complete the activity by him/herself with no assistance (physical, verbal/nonverbal cueing, setup/clean-up)? No. FOOTWEAR - STEP 2: Does the patient need only setup/clean-up assistance from one helper? No. FOOTWEAR - STEP 3: Does the patient need only verbal/nonverbal cueing or touching/steadying/contact guard assistance fro m one helper? No. FOOTWEAR - STEP 4: Does the patient need physical assistance - for example lifting or trunk support from one helper - wi th the helper providing less than half of the effort? No. FOOTWEAR - STEP 5: Does the patient need physical assistance - for example lifting or trunk support from one helper - wi th the helper providing more than half of the effort? Yes. 1. [id number] ADMISSION PERFORMANCE: Substantial/maximal assistance CODE: 02 DOES THE PATIENT USE A WHEELCHAIR/SCOOTER? CODE: EXPR INDICATE THE TYPE OF WHEELCHAIR/SCOOTER USED: CODE: EXPR INDICATE THE TYPE OF WHEELCHAIR/SCOOTER USED: CODE: EXPR BLADDER AND BOWEL: CODE: EXPR CODE: EXPR SIGNATURE PANEL: The following modified sections: 1. [id number] Admission Performance, 1. [id number] Admission Performance, 1. [id number] Admission Performance, 1. [id number] Admission Performance, 1. [id number] Admission Performance were [electronically] signed by KENNY Nye on ThuNov 10 2019 14:49:00 GMT-0500 (Central Daylight Time)
[2019-11-10] MEDS: MELATONIN 3 MG TABLET PO SCH (20:00)
[2019-11-11] MEDS: HYDROCODONE/APAP 5/325 MG TAB PO PRN ×2 (03:06→08:31)
[2019-11-11] MEDS: TRAMADOL HCL 50 MG TAB PO PRN ×3 (06:04→23:06)
[2019-11-11] MEDS: ANASTROZOLE 1 MG TAB PO SCH (07:23)
[2019-11-11] MEDS: APIXABAN 5 MG TABLET PO SCH ×2 (07:24→19:13)
[2019-11-11] MEDS: LACTOBACILLUS/ACIDOPHILUS TAB PO SCH ×2 (07:24→19:13)
[2019-11-11] MEDS: DOXYCYCLINE 100 MG CAP PO SCH ×2 (07:24→19:12)
[2019-11-11] MEDS: GABAPENTIN 400 MG CAP PO SCH ×2 (07:27→19:13)
[2019-11-11] MEDS: SERTRALINE HCL 50 MG TAB PO SCH (07:27)
[2019-11-11] MEDS: PROMOD 30 ML DOSE PO SCH ×2 (07:30→19:28)
[2019-11-11] MEDS: LIDOCAINE 4% PATCH TOP SCH (07:39)
[2019-11-11] MEDS: MUPIROCIN 2% OINT 22GM TUBE TOP SCH ×2 (07:40→19:12)
--- NOTE | 2019-11-11 13:16 | P.RH.PN ---
Estimated Length of Stay: 16 Expected Discharge Date: 11/22/19 Discharge Disposition Plan: Home Family Support: Yes Assisted Goal: Mobility, Transfers, Self Care Vital Signs: Last Vital Signs Temp 96.6 F L 11/11/19 06:58 Pulse 59 11/11/19 06:58 Resp 16 11/11/19 12:39 BP 108/49 L 11/11/19 06:58 Pulse Ox 95 11/11/19 12:39 Laboratory: Laboratory Last Values WBC 9.9 K/uL (4.3-10.9) 11/08/19 05:50 RBC 3.88 M/uL (3.86-4.86) 11/08/19 05:50 Hgb 11.6 g/dL (12.0-15.0) L 11/08/19 05:50 Hct 34.1 % (36.0-45.0) L 11/08/19 05:50 MCV 88.0 fL (80-100) D 11/08/19 05:50 MCH 29.8 pg (27.0-35.0) 11/08/19 05:50 MCHC 33.9 g/dL (32.0-36.0) 11/08/19 05:50 RDW 14.3 % (12.1-15.2) 11/08/19 05:50 Plt Count 454 K/uL (152-406) H 11/08/19 05:50 MPV 8.2 fL (7.6-11.3) 11/08/19 05:50 Neutrophils % 44.7 % (41.7-73.7) 11/08/19 05:50 Lymphocytes % 44.4 % (15.3-44.8) 11/08/19 05:50 Monocytes % 7.5 % (3.3-12.3) 11/08/19 05:50 Eosinophils % 2.3 % (0-4.4) 11/08/19 05:50 Basophils % 1.1 % (0-1.3) 11/08/19 05:50 Absolute Neutrophils 4.4 K/uL (1.8-8.0) 11/08/19 05:50 Absolute Lymphocytes 4.4 K/uL (0.7-4.9) 11/08/19 05:50 Absolute Monocytes 0.7 K/uL (0.1-1.3) 11/08/19 05:50 Absolute Eosinophils 0.2 K/uL (0-0.5) 11/08/19 05:50 Absolute Basophils 0.1 K/uL (0-0.5) 11/08/19 05:50 Sodium 139 mmol/L (136-145) 11/08/19 05:50 Potassium 4.2 mmol/L (3.5-5.1) 11/08/19 05:50 Chloride 106 mmol/L (98-107) 11/08/19 05:50 Carbon Dioxide 28 mmol/L (21-32) 11/08/19 05:50 BUN 16 mg/dL (7-18) 11/08/19 05:50 Creatinine 0.65 mg/dL (0.55-1.3) 11/08/19 05:50 Estimated GFR 89 mL/min (=/>90) L 11/08/19 05:50 Glucose 116 mg/dL (74-106) H 11/08/19 05:50 Calcium 8.9 mg/dL (8.5-10.1) 11/08/19 05:50 Magnesium 2.1 mg/dL (1.8-2.4) 11/08/19 05:50 Albumin 2.8 g/dL (3.4-5.0) L 11/08/19 05:50 Prealbumin 19.1 mg/dL (20-40) L 11/08/19 05:50 Urine Color Yellow 11/07/19 18:55 Urine Appearance Cloudy 11/07/19 18:55 Urine pH 6.0 (5.0-7.0) 11/07/19 18:55 Ur Specific [place] 1.015 (1.005-1.030) 11/07/19 18:55 Glucose (UA)(Auto) Negative (NEG) 11/07/19 18:55 Urine Ketones Negative (NEG) 11/07/19 18:55 Urine Blood 1+ (NEG) H 11/07/19 18:55 Urine Nitrite Negative (NEG) 11/07/19 18:55 Urine Bilirubin Negative (NEG) 11/07/19 18:55 Urine Urobilinogen 0.2 mg/dL (0.2-1.0) 11/07/19 18:55 Ur Leukocyte Esterase 3+ (NEG) H 11/07/19 18:55 Urine RBC 5-10 /HPF (NONE SEEN) H 11/07/19 18:55 Urine WBC 10-20 /HPF (<5) H 11/07/19 18:55 Ur Squamous Epith Cells 5-10 /HPF (NONE SEEN) H 11/07/19 18:55 Urine Bacteria <20 /HPF (<20) 11/07/19 18:55 Urine Mucus 2+ /HPF (NONE SEEN) 11/07/19 18:55 Urine Culture Reflexed Not needed 11/07/19 18:55 Urine Total Protein Negative (NEG) 11/07/19 18:55 Weight: 177 lb Wound Present: No Closed Surgical Incision Present: No Negative Pressure Wound Therapy Present: No Physician Update: She has moderate cognitive impairment and would likely need significant help after disharge. She is doing faily well but is limited by her right arm which is restricted in a sling with nonweight bearing status with that arm and she has moderate pain. Two of her daughters are apparently using drugs are not reliable to help. She may requires SNF or assisted living. Functional Improvement: Patient presents w/ cognition issues, and requires heavy VC for proper technique for task and for motivation. Patient is currently Mod A for bed mobility, and sit <> stand transfers; CG for stand pivot and gait tx. Speech Therapy Update: Moderate to Severe Cognitive impairment on admission; poor memory and problem solving/safety Summary: Patient's care plan and chcf goals have been reviewed and revised as necessary. Please see the Rehabilitation Signature page for all necessary signatures.
[2019-11-11] MEDS: MELATONIN 3 MG TABLET PO SCH (19:28)
[2019-11-12] MEDS: HYDROCODONE/APAP 5/325 MG TAB PO PRN ×3 (03:12→23:28)
[2019-11-12] MEDS: LIDOCAINE 4% PATCH TOP SCH (07:15)
[2019-11-12] MEDS: SERTRALINE HCL 50 MG TAB PO SCH (07:47)
[2019-11-12] MEDS: MUPIROCIN 2% OINT 22GM TUBE TOP SCH ×2 (07:47→20:00)
[2019-11-12] MEDS: DOXYCYCLINE 100 MG CAP PO SCH ×2 (07:48→19:59)
[2019-11-12] MEDS: APIXABAN 5 MG TABLET PO SCH ×2 (07:48→19:59)
[2019-11-12] MEDS: GABAPENTIN 400 MG CAP PO SCH ×2 (07:48→19:59)
[2019-11-12] MEDS: LACTOBACILLUS/ACIDOPHILUS TAB PO SCH ×2 (07:48→19:59)
[2019-11-12] MEDS: ANASTROZOLE 1 MG TAB PO SCH (07:48)
[2019-11-12] MEDS: PROMOD 30 ML DOSE PO SCH ×2 (07:48→20:00)
[2019-11-12] MEDS: TRAMADOL HCL 50 MG TAB PO PRN ×3 (08:09→21:27)
[2019-11-12] MEDS: MELATONIN 3 MG TABLET PO SCH (20:01)
[2019-11-12] MEDS: LORAZEPAM 0.5 MG TABLET PO PRN (21:27)
--- NOTE | 2019-11-12 21:28 | R.PN ---
ENCOUNTER DATE AND TIME: 11/12/2019 21:23 (CDT) NAME PORSHA ANN DATE OF : 1940 DATE OF ADMISSION: 11/07/2019 15:22 (CDT) Right humerus fracture, NWBCHIEF COMPLAINT: Right humerus fracture SUBJECTIVE: Pt denied any Shortness of Breath. Pt denied any depression. CBC with differential is essentially normal. Prealbumin is 19.1, glucose 116. Ambulated 250' with contact guard assistance using a hemiwalker. Right humerus pain is managed. VITAL SIGNS Temperature: 97.2 F SBP/DBP: 128/60 Pulse: 76 Resp: 16 [id number]].pdf MEDICATION ALLERGIES: No Known Drug Allergies (NKDA) ENVIRONMENTAL ALLERGIES: - Substance Allergies None Known - Other Allergies None Known NURSING: - Shower allowing shower ACTIVITIES OOB only with supervision THERAPIES: - Dietary and Nutrition Adequate Nutrition. Nutritional Education. Nutritional Supplements. PHYSICAL EXAM - Gen Alert and awake Lying in bed No apparent distress Oriented to: person, time, and place - Skin Mild bruising on the right forearm, held in a shoulder sling. Normacephalic - Eyes No abnormalities - ENMT No abnormalities - Neck No abnormalities - CVS RRR - Chest No abnormalities - Resp No wheezing - Abd Soft - GI + bowel sounds Deferred - No abnormalities - Ext Mild right lower extremity edema. - MSK 4+/5 weakness in right lower extremity - Neuro 4/5 strength right lower extremity. - Psych No abnormalities ASSESSMENT: Pt. is a 78 yo Right-handed white female.On 11/01/2019 she was admitted to [facility] with diagnosis Right humerus fracture.On 11/01/2019 she was admitted to [facility] with diagnosis Right humerus fracture, NWB.He r impairment category is Other orthopedic: 8.9Her impairment category is Debility 16 - Debility (16) .Pre-morbidly, Pt. was independent/mod-I in Safety Awareness, Social Cognition, Transfers Control, an d Sphincter Control; and she had good Communication and Safety Awareness.Currently, she has deficits of Safety Awareness, Self-Care, Endurance, Locomotion, and Sphincter Control.Pt. is now referred to [facility] for acute in-patient rehabilitation in order to maximize patient's f unctional independence in activities of daily living, strength, ROM, and mobility.- Rehab Goal Patient has realistic goal of being discharged at assistance level 6-Chase to reside at Home with Pt self. MDM/PLAN: - Physical Therapy Weakness - to improve, our physical therapists will perform initial evaluation of pt's status upon a dmission and devise an individualized program for Aquatic Therapy, Neuromuscular Reeducation, and Str engthening Need in caregiver upon discharge - to improve, our physical therapists will perform initial evaluati on of pt's status upon admission and devise an individualized program for Caregiver Training Poor endurance - to improve, our physical therapists will perform initial evaluation of pt's status upon admission and devise an individualized program for Endurance Training Gait dysfunction - to improve, our physical therapists will perform initial evaluation of pt's statu s upon admission and devise an individualized program for Gait Training, and Wheel Chair mobility Need for home safety evaluation - to improve, our physical therapists will perform initial evaluatio n of pt's status upon admission and devise an individualized program for Home Evaluation New precaution - to improve, our physical therapists will perform initial evaluation of pt's status upon admission and devise an individualized program for Patient precaution education Edema - to improve, our physical therapists will perform initial evaluation of pt's status upon admi ssion and devise an individualized program for Elevation Training, and Lymphedema Therapy - Occupational Therapy Weakness - to improve, our occupation therapists will perform initial evaluation of pt's status upon admission and devise an individualized program for Aquatic Therapy, Balance, Endurance, UE ROM, and UE strengthening ADL deficits - to improve, our occupation therapists will perform initial evaluation of pt's status upon admission and devise an individualized program for Bathing, Bed mobility, Community Reintegratio n, Cooking, Dressing, Eating, Fine Motor Skills, Grooming, Homemaking, Kitchen Mobility, Laundry, Pat ient Education, Safety Awareness, Splinting - Positioning, Transfers(Toilet, Tub, Shower), and Wheel Chair Management Need for resident care manager rn - to improve, our occupation therapists will perform initial evaluation of pt's status upon admission and devise an individualized program for Caregiver Training - Other See attached MAR (Medication Administration Record) - Diet Type Continue Regular - Diet - Liquid Texture Continue Regular - Tube Feed Continue N/A - Diet - Solid Texture Continue Regular - Shower allowing shower - Balance for Weakness - Bed mobility for ADL deficits FUNCTIONAL STATUS: UPDATED AT WEEKLY TEAM CONFERENCE - Bladder Same accident frequency: 7-Ind - No accidents in the past 7 days - Bowel Same accident frequency: 7-Ind - No accidents in the past 7 days - Walking Same score based on distance walked: 0(N/A) Same score based on distance walked: 1(<=50ft) - Wheelchair Same score based on distance traveled: 0(N/A) FUNCTIONAL STATUS: - Self-Care A. Eating Ind B. Grooming Chase C. Bathing Juan D. Dressing - Upper Juan E. Dressing - Lower modA F. Toileting Juan - Sphincter Control G. Bladder control Chase H. Bowel control Chase - Transfers Control I. Bed/Chair/Wheelchair Juan J. Toilet Juan K. Tub/Shower modA - Locomotion L. Walk/Wheelchair (B) Juan M. Stairs maxA - Communication N. Comprehension (B) Chase O. Expression (B) Chase - Social Cognition P. Social Interaction Ind Q. Problem Solving sup R. Memory Chase - Endurance Fair - Balance Fair - Safety Awareness Fair QI SCORES: - Self-Care A. Eating 03-Partial/moderate assistance B. Oral hygiene 03-Partial/moderate assistance C. Toileting hygiene 03-Partial/moderate assistance E. Shower/bathe self 03-Partial/moderate assistance F. Upper body dressing 03-Partial/moderate assistance G. Lower body dressing 02-Substantial/maximal assistance H. Putting on/taking off footwear 88-Not attempted due to medical condition or safety concerns - Mobility A. Roll left and right 03-Partial/moderate assistance B. Sit to lying 03-Partial/moderate assistance C. Lying to sitting on side of bed 03-Partial/moderate assistance D. Sit to stand 03-Partial/moderate assistance E. Chair/cne-hb-ujbas transfer 03-Partial/moderate assistance F. Toilet transfer 03-Partial/moderate assistance G. Car transfer 88-Not attempted due to medical condition or safety concerns I. Walk 10 feet 88-Not attempted due to medical condition or safety concerns J. Walk 50 feet with two turns 88-Not attempted due to medical condition or safety concerns K. Walk 150 feet 88-Not attempted due to medical condition or safety concerns L. Walking 10 feet on uneven surfaces 88-Not attempted due to medical condition or safety concerns M. 1 step (curb) 88-Not attempted due to medical condition or safety concerns N. 4 steps 88-Not attempted due to medical condition or safety concerns O. 12 steps 88-Not attempted due to medical condition or safety concerns P. Picking up object 03-Partial/moderate assistance R. Wheel 50 feet with two turns 88-Not attempted due to medical condition or safety concerns S. Wheel 150 feet 10-Not attempted due to environmental limitations - Bladder and Bowel Bladder continence 0-Always continent Bowel continence 0-Always continent - Endurance Fair - Balance Fair - Safety Awareness Fair [facility]. DEFICITS: Self-Care, Safety Awareness, Endurance, Balance, and Mobility SIGNATURE PANEL: (CDT)
[2019-11-12] MEDS: TRAZODONE 50 MG TABLET PO PRN (22:58)
[2019-11-13] MEDS: MUPIROCIN 2% OINT 22GM TUBE TOP SCH ×2 (08:00→18:49)
[2019-11-13] MEDS: LIDOCAINE 4% PATCH TOP SCH (08:49)
[2019-11-13] MEDS: LACTOBACILLUS/ACIDOPHILUS TAB PO SCH ×2 (08:49→18:48)
[2019-11-13] MEDS: ANASTROZOLE 1 MG TAB PO SCH (08:50)
[2019-11-13] MEDS: SERTRALINE HCL 50 MG TAB PO SCH (08:50)
[2019-11-13] MEDS: DOXYCYCLINE 100 MG CAP PO SCH ×2 (08:50→18:48)
[2019-11-13] MEDS: PROMOD 30 ML DOSE PO SCH ×2 (08:51→18:49)
[2019-11-13] MEDS: APIXABAN 5 MG TABLET PO SCH ×2 (08:51→18:48)
[2019-11-13] MEDS: GABAPENTIN 400 MG CAP PO SCH ×2 (08:51→18:48)
[2019-11-13] MEDS: HYDROCODONE/APAP 5/325 MG TAB PO PRN ×3 (08:54→21:41)
[2019-11-13] MEDS: TRAMADOL HCL 50 MG TAB PO PRN ×2 (12:40→18:48)
[2019-11-13] MEDS: MELATONIN 3 MG TABLET PO SCH (18:48)
[2019-11-13] MEDS: TRAZODONE 50 MG TABLET PO PRN (21:40)
[2019-11-14] MEDS: TRAMADOL HCL 50 MG TAB PO PRN ×3 (03:42→20:11)
[2019-11-14] MEDS: LACTOBACILLUS/ACIDOPHILUS TAB PO SCH ×2 (07:46→20:12)
[2019-11-14] MEDS: SERTRALINE HCL 50 MG TAB PO SCH (07:47)
[2019-11-14] MEDS: ANASTROZOLE 1 MG TAB PO SCH (07:47)
[2019-11-14] MEDS: APIXABAN 5 MG TABLET PO SCH ×2 (07:47→20:13)
[2019-11-14] MEDS: GABAPENTIN 400 MG CAP PO SCH ×2 (07:47→20:12)
[2019-11-14] MEDS: PROMOD 30 ML DOSE PO SCH ×2 (07:48→20:14)
[2019-11-14] MEDS: HYDROCODONE/APAP 5/325 MG TAB PO PRN ×2 (08:06→17:39)
[2019-11-14] MEDS: LIDOCAINE 4% PATCH TOP SCH (09:09)
[2019-11-14] MEDS: MUPIROCIN 2% OINT 22GM TUBE TOP SCH ×2 (09:10→20:13)
[2019-11-14] MEDS: MELATONIN 3 MG TABLET PO SCH (20:12)
[2019-11-14] MEDS: TRAZODONE 50 MG TABLET PO PRN (20:12)
--- NOTE | 2019-11-14 21:11 | R.PN ---
ENCOUNTER DATE AND TIME: 11/14/2019 17:48 (CDT) NAME PORSHA ANN DATE OF : 1940 DATE OF ADMISSION: 11/07/2019 15:22 (CDT) Right humerus fracture, NWBCHIEF COMPLAINT: Right humerus fracture SUBJECTIVE: Pt denied any Shortness of Breath. Pt denied any depression. CBC with differential is essentially normal. Prealbumin is 19.1, glucose 116. Ambulated 530' with contact guard assistance using a left hemiwalker. Right humerus pain is managed. VITAL SIGNS Temperature: 97.4 F SBP/DBP: 117/57 Pulse: 64 Resp: 16 [id number]].pdf MEDICATION ALLERGIES: No Known Drug Allergies (NKDA) ENVIRONMENTAL ALLERGIES: - Substance Allergies None Known - Other Allergies None Known NURSING: - Shower allowing shower ACTIVITIES OOB only with supervision THERAPIES: - Dietary and Nutrition Adequate Nutrition. Nutritional Education. Nutritional Supplements. PHYSICAL EXAM - Gen Alert and awake Lying in bed No apparent distress Oriented to: person, time, and place - Skin Mild bruising on the right forearm, held in a shoulder sling. Normacephalic - Eyes No abnormalities - ENMT No abnormalities - Neck No abnormalities - CVS RRR - Chest No abnormalities - Resp No wheezing - Abd Soft - GI + bowel sounds Deferred - No abnormalities - Ext Mild right lower extremity edema. - MSK 4+/5 weakness in right lower extremity - Neuro 4/5 strength right lower extremity. - Psych No abnormalities ASSESSMENT: Pt. is a 78 yo Right-handed white female.On 11/01/2019 she was admitted to [facility] with diagnosis Right humerus fracture.On 11/01/2019 she was admitted to [facility] with diagnosis Right humerus fracture, NWB.He r impairment category is Other orthopedic: 8.9Her impairment category is Debility 16 - Debility (16) .Pre-morbidly, Pt. was independent/mod-I in Safety Awareness, Social Cognition, Transfers Control, an d Sphincter Control; and she had good Communication and Safety Awareness.Currently, she has deficits of Safety Awareness, Self-Care, Endurance, Locomotion, and Sphincter Control.Pt. is now referred to [facility] for acute in-patient rehabilitation in order to maximize patient's f unctional independence in activities of daily living, strength, ROM, and mobility.- Rehab Goal Patient has realistic goal of being discharged at assistance level 6-Chase to reside at Home with Pt self. MDM/PLAN: - Physical Therapy Weakness - to improve, our physical therapists will perform initial evaluation of pt's status upon a dmission and devise an individualized program for Aquatic Therapy, Neuromuscular Reeducation, and Str engthening Need in caregiver upon discharge - to improve, our physical therapists will perform initial evaluati on of pt's status upon admission and devise an individualized program for Caregiver Training Poor endurance - to improve, our physical therapists will perform initial evaluation of pt's status upon admission and devise an individualized program for Endurance Training Gait dysfunction - to improve, our physical therapists will perform initial evaluation of pt's statu s upon admission and devise an individualized program for Gait Training, and Wheel Chair mobility Need for home safety evaluation - to improve, our physical therapists will perform initial evaluatio n of pt's status upon admission and devise an individualized program for Home Evaluation New precaution - to improve, our physical therapists will perform initial evaluation of pt's status upon admission and devise an individualized program for Patient precaution education Edema - to improve, our physical therapists will perform initial evaluation of pt's status upon admi ssion and devise an individualized program for Elevation Training, and Lymphedema Therapy - Occupational Therapy Weakness - to improve, our occupation therapists will perform initial evaluation of pt's status upon admission and devise an individualized program for Aquatic Therapy, Balance, Endurance, UE ROM, and UE strengthening ADL deficits - to improve, our occupation therapists will perform initial evaluation of pt's status upon admission and devise an individualized program for Bathing, Bed mobility, Community Reintegratio n, Cooking, Dressing, Eating, Fine Motor Skills, Grooming, Homemaking, Kitchen Mobility, Laundry, Pat ient Education, Safety Awareness, Splinting - Positioning, Transfers(Toilet, Tub, Shower), and Wheel Chair Management Need for career placement specialist - to improve, our occupation therapists will perform initial evaluation of pt's status upon admission and devise an individualized program for Caregiver Training - Other See attached MAR (Medication Administration Record) - Diet Type Continue Regular - Diet - Liquid Texture Continue Regular - Tube Feed Continue N/A - Diet - Solid Texture Continue Regular - Shower allowing shower - Balance for Weakness - Bed mobility for ADL deficits FUNCTIONAL STATUS: UPDATED AT WEEKLY TEAM CONFERENCE - Bladder Same accident frequency: 7-Ind - No accidents in the past 7 days - Bowel Same accident frequency: 7-Ind - No accidents in the past 7 days - Walking Same score based on distance walked: 0(N/A) Same score based on distance walked: 1(<=50ft) - Wheelchair Same score based on distance traveled: 0(N/A) FUNCTIONAL STATUS: - Self-Care A. Eating Ind B. Grooming Chase C. Bathing Juan D. Dressing - Upper Juan E. Dressing - Lower modA F. Toileting Juan - Sphincter Control G. Bladder control Chase H. Bowel control Chase - Transfers Control I. Bed/Chair/Wheelchair Juan J. Toilet Juan K. Tub/Shower modA - Locomotion L. Walk/Wheelchair (B) Juan M. Stairs maxA - Communication N. Comprehension (B) Chase O. Expression (B) Chase - Social Cognition P. Social Interaction Ind Q. Problem Solving sup R. Memory Chase - Endurance Fair - Balance Fair - Safety Awareness Fair QI SCORES: - Self-Care A. Eating 03-Partial/moderate assistance B. Oral hygiene 03-Partial/moderate assistance C. Toileting hygiene 03-Partial/moderate assistance E. Shower/bathe self 03-Partial/moderate assistance F. Upper body dressing 03-Partial/moderate assistance G. Lower body dressing 02-Substantial/maximal assistance H. Putting on/taking off footwear 88-Not attempted due to medical condition or safety concerns - Mobility A. Roll left and right 03-Partial/moderate assistance B. Sit to lying 03-Partial/moderate assistance C. Lying to sitting on side of bed 03-Partial/moderate assistance D. Sit to stand 03-Partial/moderate assistance E. Chair/yda-as-mjrdl transfer 03-Partial/moderate assistance F. Toilet transfer 03-Partial/moderate assistance G. Car transfer 88-Not attempted due to medical condition or safety concerns I. Walk 10 feet 88-Not attempted due to medical condition or safety concerns J. Walk 50 feet with two turns 88-Not attempted due to medical condition or safety concerns K. Walk 150 feet 88-Not attempted due to medical condition or safety concerns L. Walking 10 feet on uneven surfaces 88-Not attempted due to medical condition or safety concerns M. 1 step (curb) 88-Not attempted due to medical condition or safety concerns N. 4 steps 88-Not attempted due to medical condition or safety concerns O. 12 steps 88-Not attempted due to medical condition or safety concerns P. Picking up object 03-Partial/moderate assistance R. Wheel 50 feet with two turns 88-Not attempted due to medical condition or safety concerns S. Wheel 150 feet 10-Not attempted due to environmental limitations - Bladder and Bowel Bladder continence 0-Always continent Bowel continence 0-Always continent - Endurance Fair - Balance Fair - Safety Awareness Fair CURRENT [facility]. DEFICITS: Self-Care, Safety Awareness, Endurance, Balance, and Mobility SIGNATURE PANEL: (CDT)
[2019-11-15] MEDS: MUPIROCIN 2% OINT 22GM TUBE TOP SCH ×2 (08:00→20:00)
[2019-11-15] MEDS: SERTRALINE HCL 50 MG TAB PO SCH (08:42)
[2019-11-15] MEDS: GABAPENTIN 400 MG CAP PO SCH ×2 (08:42→19:23)
[2019-11-15] MEDS: LACTOBACILLUS/ACIDOPHILUS TAB PO SCH ×2 (08:42→21:32)
[2019-11-15] MEDS: APIXABAN 5 MG TABLET PO SCH ×2 (08:43→19:23)
[2019-11-15] MEDS: ANASTROZOLE 1 MG TAB PO SCH (08:43)
[2019-11-15] MEDS: HYDROCODONE/APAP 5/325 MG TAB PO PRN ×3 (08:43→21:32)
[2019-11-15] MEDS: LIDOCAINE 4% PATCH TOP SCH (08:44)
[2019-11-15] MEDS: PROMOD 30 ML DOSE PO SCH ×2 (09:09→19:33)
[2019-11-15] MEDS: TRAMADOL HCL 50 MG TAB PO PRN ×2 (11:39→19:23)
[2019-11-15] MEDS: LORAZEPAM 0.5 MG TABLET PO PRN (19:23)
[2019-11-15] MEDS: DOCUSATE NA/SENNA CONC 1 TAB PO PRN (19:23)
[2019-11-15] MEDS: TRAZODONE 50 MG TABLET PO PRN (21:33)
[2019-11-15] MEDS: MELATONIN 3 MG TABLET PO SCH (21:33)
[2019-11-16] MEDS: TRAMADOL HCL 50 MG TAB PO PRN ×3 (03:48→19:07)
[2019-11-16] MEDS: LACTOBACILLUS/ACIDOPHILUS TAB PO SCH ×2 (07:09→19:07)
[2019-11-16] MEDS: GABAPENTIN 400 MG CAP PO SCH ×2 (07:09→19:05)
[2019-11-16] MEDS: ANASTROZOLE 1 MG TAB PO SCH (07:09)
[2019-11-16] MEDS: APIXABAN 5 MG TABLET PO SCH ×2 (07:09→19:07)
[2019-11-16] MEDS: MUPIROCIN 2% OINT 22GM TUBE TOP SCH ×2 (07:10→19:08)
[2019-11-16] MEDS: LIDOCAINE 4% PATCH TOP SCH (07:10)
[2019-11-16] MEDS: SERTRALINE HCL 50 MG TAB PO SCH (07:10)
[2019-11-16] MEDS: PROMOD 30 ML DOSE PO SCH ×2 (07:10→19:08)
[2019-11-16] MEDS: HYDROCODONE/APAP 5/325 MG TAB PO PRN ×3 (07:13→17:03)
--- NOTE | 2019-11-16 14:24 | FAST ---
ENCOUNTER DATE AND TIME: 11/16/2019 08:00 (CDT) NAME PORSHA ANN DATE OF : 1940 DATE OF ADMISSION: 11/07/2019 15:22 (CDT) PHONE: AGE: 78 N# [id number] GENDER: Female ENCOUNTER PHYSICIAN: Dr. Marlon Barney M.D. ADMISSION DIAGNOSIS: - Debility 16 - Debility (16) Right humerus fracture, NWB. EATING: Not assessed/no information CODE: - ORAL HYGIENE: ORAL HYGIENE - STEP 1: Does the patient complete the activity by him/herself with no assistance (physical, verbal/nonverbal cueing, setup/clean-up)? No. ORAL HYGIENE - STEP 2: Does the patient need only setup/clean-up assistance from one helper? No. ORAL HYGIENE - STEP 3: Does the patient need only verbal/nonverbal cueing or touching/steadying/contact guard assistance fro m one helper? Yes. 1. [id number] ADMISSION PERFORMANCE: Supervision or touching assistance CODE: 04 TOILETING HYGIENE: TOILETING HYGIENE - STEP 1: Does the patient complete the activity by him/herself with no assistance (physical, verbal/nonverbal cueing, setup/clean-up)? No. TOILETING HYGIENE - STEP 2: Does the patient need only setup/clean-up assistance from one helper? No. TOILETING HYGIENE - STEP 3: Does the patient need only verbal/nonverbal cueing or touching/steadying/contact guard assistance fro m one helper? Yes. 1. [id number] ADMISSION PERFORMANCE: Supervision or touching assistance CODE: 04 BATHING: SHOWER/BATHE SELF - STEP 1: Does the patient complete the activity by him/herself with no assistance (physical, verbal/nonverbal cueing, setup/clean-up)? No. SHOWER/BATHE SELF - STEP 2: Does the patient need only setup/clean-up assistance from one helper? No. SHOWER/BATHE SELF - STEP 3: Does the patient need only verbal/nonverbal cueing or touching/steadying/contact guard assistance fro m one helper? Yes. 1. [id number] ADMISSION PERFORMANCE: Supervision or touching assistance CODE: 04 DRESSING - UPPER BODY: DRESSING - UPPER BODY - STEP 1: Does the patient complete the activity by him/herself with no assistance (physical, verbal/nonverbal cueing, setup/clean-up)? No. DRESSING - UPPER BODY - STEP 2: Does the patient need only setup/clean-up assistance from one helper? No. DRESSING - UPPER BODY - STEP 3: Does the patient need only verbal/nonverbal cueing or touching/steadying/contact guard assistance fro m one helper? No. DRESSING - UPPER BODY - STEP 4: Does the patient need physical assistance - for example lifting or trunk support from one helper - wi th the helper providing less than half of the effort? No. DRESSING - UPPER BODY - STEP 5: Does the patient need physical assistance - for example lifting or trunk support from one helper - wi th the helper providing more than half of the effort? Yes. 1. [id number] ADMISSION PERFORMANCE: Substantial/maximal assistance CODE: 02 DRESSING - LOWER BODY: DRESSING - LOWER BODY - STEP 1: Does the patient complete the activity by him/herself with no assistance (physical, verbal/nonverbal cueing, setup/clean-up)? No. DRESSING - LOWER BODY - STEP 2: Does the patient need only setup/clean-up assistance from one helper? No. DRESSING - LOWER BODY - STEP 3: Does the patient need only verbal/nonverbal cueing or touching/steadying/contact guard assistance fro m one helper? No. DRESSING - LOWER BODY - STEP 4: Does the patient need physical assistance - for example lifting or trunk support from one helper - wi th the helper providing less than half of the effort? Yes. 1. [id number] ADMISSION PERFORMANCE: Partial/moderate assistance CODE: 03 PUTTING ON/TAKING OFF FOOTWEAR: FOOTWEAR - STEP 1: Does the patient complete the activity by him/herself with no assistance (physical, verbal/nonverbal cueing, setup/clean-up)? No. FOOTWEAR - STEP 2: Does the patient need only setup/clean-up assistance from one helper? No. FOOTWEAR - STEP 3: Does the patient need only verbal/nonverbal cueing or touching/steadying/contact guard assistance fro m one helper? No. FOOTWEAR - STEP 4: Does the patient need physical assistance - for example lifting or trunk support from one helper - wi th the helper providing less than half of the effort? Yes. 1. [id number] ADMISSION PERFORMANCE: Partial/moderate assistance CODE: 03 DOES THE PATIENT USE A WHEELCHAIR/SCOOTER? CODE: EXPR INDICATE THE TYPE OF WHEELCHAIR/SCOOTER USED: CODE: EXPR INDICATE THE TYPE OF WHEELCHAIR/SCOOTER USED: CODE: EXPR BLADDER AND BOWEL: CODE: EXPR CODE: EXPR SIGNATURE PANEL: The following modified sections: 1. [id number] Admission Performance, 1. [id number] Admission Performance, 1. [id number] Admission Performance, 1. [id number] Admission Performance, 1. OC8632x Admission Performance, 1. [id number] Admission Performance, 1. [id number] Admission Performance were [electronically] signed by KENNY Meza on ThuNov 16 2019 14:23:28 T-0500 (Central Daylight Time)
--- NOTE | 2019-11-16 18:41 | R.PN ---
ENCOUNTER DATE AND TIME: 11/16/2019 18:38 (CDT) NAME PORSHA ANN DATE OF : 1940 DATE OF ADMISSION: 11/07/2019 15:22 (CDT) Right humerus fracture, NWBCHIEF COMPLAINT: Right humerus fracture SUBJECTIVE: Pt denied any Shortness of Breath. Pt denied any depression. CBC with differential is essentially normal. Prealbumin is 19.1, glucose 116. Ambulated 400' with contact guard assistance using a left hemiwalker. Right humerus pain is managed with a pain patch. VITAL SIGNS Temperature: 97.0 F SBP/DBP: 139/64 Pulse: 73 Resp: 15 [id number]].pdf MEDICATION ALLERGIES: No Known Drug Allergies (NKDA) ENVIRONMENTAL ALLERGIES: - Substance Allergies None Known - Other Allergies None Known NURSING: - Shower allowing shower ACTIVITIES OOB only with supervision THERAPIES: - Dietary and Nutrition Adequate Nutrition. Nutritional Education. Nutritional Supplements. PHYSICAL EXAM - Gen Alert and awake Lying in bed No apparent distress Oriented to: person, time, and place - Skin Mild bruising on the right forearm, held in a shoulder sling. Normacephalic - Eyes No abnormalities - ENMT No abnormalities - Neck No abnormalities - CVS RRR - Chest No abnormalities - Resp No wheezing - Abd Soft - GI + bowel sounds Deferred - No abnormalities - Ext Mild right lower extremity edema. - MSK 4+/5 weakness in right lower extremity - Neuro 4/5 strength right lower extremity. - Psych No abnormalities ASSESSMENT: Pt. is a 78 yo Right-handed white female.On 11/01/2019 she was admitted to [facility] with diagnosis Right humerus fracture.On 11/01/2019 she was admitted to [facility] with diagnosis Right humerus fracture, NWB.He r impairment category is Other orthopedic: 8.9Her impairment category is Debility 16 - Debility (16) .Pre-morbidly, Pt. was independent/mod-I in Safety Awareness, Social Cognition, Transfers Control, an d Sphincter Control; and she had good Communication and Safety Awareness.Currently, she has deficits of Safety Awareness, Self-Care, Endurance, Locomotion, and Sphincter Control.Pt. is now referred to [facility] for acute in-patient rehabilitation in order to maximize patient's f unctional independence in activities of daily living, strength, ROM, and mobility.- Rehab Goal Patient has realistic goal of being discharged at assistance level 6-Chase to reside at Home with Pt self. Porsha Ann is a 78 year old female who lives at home independently. She has pmh of lower extremity, DVT, back pain and depression who presented to the emergency room secondary to right upper extremity swelling and tenderness. Cellulitis of the right arm. Patient was found to have an acute left popliteal DVT as well as nonpurulent cellulitis. She was Admitted at [facility] on 11/01/19.Patient states that she was adherent to her antibiotics when she went home from her first ER visit. She is now being transferred to [facility] Inpatient rehabilitation and is medically stable with relatively stable labs. He is now medically stable but in need of 24 hour nursing, doctor supervision and oversight while receiving active and ongoing intensive hours of therapy a day/15 hours per week and receive care with intensive interdisciplinary approach. COVID-19 screening performed; spoke with patient via phone. Patient denies new onset of fever, cough, difficulty breathing, sore throat, body aches and non-allergy nasal congestion in the past 24 hours. Patient denies travel outside of [place] in the past 14 days. Patient denies any contact with someone who has a confirmed diagnosis of or is under investigation for COVID-19 in the past 14 days. Patient has been tested negative for COVID- 19.MDM/PLAN: - Physical Therapy Weakness - to improve, our physical therapists will perform initial evaluation of pt's status upon a dmission and devise an individualized program for Aquatic Therapy, Neuromuscular Reeducation, and Str engthening Need in caregiver upon discharge - to improve, our physical therapists will perform initial evaluati on of pt's status upon admission and devise an individualized program for Caregiver Training Poor endurance - to improve, our physical therapists will perform initial evaluation of pt's status upon admission and devise an individualized program for Endurance Training Gait dysfunction - to improve, our physical therapists will perform initial evaluation of pt's statu s upon admission and devise an individualized program for Gait Training, and Wheel Chair mobility Need for home safety evaluation - to improve, our physical therapists will perform initial evaluatio n of pt's status upon admission and devise an individualized program for Home Evaluation New precaution - to improve, our physical therapists will perform initial evaluation of pt's status upon admission and devise an individualized program for Patient precaution education Edema - to improve, our physical therapists will perform initial evaluation of pt's status upon admi ssion and devise an individualized program for Elevation Training, and Lymphedema Therapy - Occupational Therapy Weakness - to improve, our occupation therapists will perform initial evaluation of pt's status upon admission and devise an individualized program for Aquatic Therapy, Balance, Endurance, UE ROM, and UE strengthening ADL deficits - to improve, our occupation therapists will perform initial evaluation of pt's status upon admission and devise an individualized program for Bathing, Bed mobility, Community Reintegratio n, Cooking, Dressing, Eating, Fine Motor Skills, Grooming, Homemaking, Kitchen Mobility, Laundry, Pat ient Education, Safety Awareness, Splinting - Positioning, Transfers(Toilet, Tub, Shower), and Wheel Chair Management Need for residential child care counselor - to improve, our occupation therapists will perform initial evaluation of pt's status upon admission and devise an individualized program for Caregiver Training - Other See attached MAR (Medication Administration Record) - Diet Type Continue Regular - Diet - Liquid Texture Continue Regular - Tube Feed Continue N/A - Diet - Solid Texture Continue Regular - Shower allowing shower - Balance for Weakness - Bed mobility for ADL deficits FUNCTIONAL STATUS: UPDATED AT WEEKLY TEAM CONFERENCE - Bladder Same accident frequency: 7-Ind - No accidents in the past 7 days - Bowel Same accident frequency: 7-Ind - No accidents in the past 7 days - Walking Same score based on distance walked: 0(N/A) Same score based on distance walked: 1(<=50ft) - Wheelchair Same score based on distance traveled: 0(N/A) FUNCTIONAL STATUS: - Self-Care A. Eating Ind B. Grooming Chase C. Bathing Juan D. Dressing - Upper Juan E. Dressing - Lower modA F. Toileting Juan - Sphincter Control G. Bladder control Chase H. Bowel control Chase - Transfers Control I. Bed/Chair/Wheelchair Juan J. Toilet Juan K. Tub/Shower modA - Locomotion L. Walk/Wheelchair (B) Juan M. Stairs maxA - Communication N. Comprehension (B) Chase O. Expression (B) Chase - Social Cognition P. Social Interaction Ind Q. Problem Solving sup R. Memory Chase - Endurance Fair - Balance Fair - Safety Awareness Fair QI SCORES: - Self-Care A. Eating 03-Partial/moderate assistance B. Oral hygiene 03-Partial/moderate assistance C. Toileting hygiene 03-Partial/moderate assistance E. Shower/bathe self 03-Partial/moderate assistance F. Upper body dressing 03-Partial/moderate assistance G. Lower body dressing 02-Substantial/maximal assistance H. Putting on/taking off footwear 88-Not attempted due to medical condition or safety concerns - Mobility A. Roll left and right 03-Partial/moderate assistance B. Sit to lying 03-Partial/moderate assistance C. Lying to sitting on side of bed 03-Partial/moderate assistance D. Sit to stand 03-Partial/moderate assistance E. Chair/wzp-[id number] transfer 03-Partial/moderate assistance F. Toilet transfer 03-Partial/moderate assistance G. Car transfer 88-Not attempted due to medical condition or safety concerns I. Walk 10 feet 88-Not attempted due to medical condition or safety concerns J. Walk 50 feet with two turns 88-Not attempted due to medical condition or safety concerns K. Walk 150 feet 88-Not attempted due to medical condition or safety concerns L. Walking 10 feet on uneven surfaces 88-Not attempted due to medical condition or safety concerns M. 1 step (curb) 88-Not attempted due to medical condition or safety concerns N. 4 steps 88-Not attempted due to medical condition or safety concerns O. 12 steps 88-Not attempted due to medical condition or safety concerns P. Picking up object 03-Partial/moderate assistance R. Wheel 50 feet with two turns 88-Not attempted due to medical condition or safety concerns S. Wheel 150 feet 10-Not attempted due to environmental limitations - Bladder and Bowel Bladder continence 0-Always continent Bowel continence 0-Always continent - Endurance Fair - Balance Fair - Safety Awareness Fair [facility] DEFICITS: Self-Care, Safety Awareness, Endurance, Balance, and Mobility SIGNATURE PANEL: (CDT)
[2019-11-16] MEDS: MELATONIN 3 MG TABLET PO SCH (19:05)
[2019-11-17] MEDS: HYDROCODONE/APAP 5/325 MG TAB PO PRN ×4 (01:03→20:45)
[2019-11-17 06:13] LABS: Basophils % 0.8 % (0-1.3); Hematocrit 32.2 % (36.0-45.0); MPV 8.7 fL (7.6-11.3); RBC Red Blood Cell Count 3.68 M/uL (3.86-4.86)
[2019-11-17 06:34] LABS: Albumin 2.9 g/dL (3.4-5.0); BUN Blood Urea Nitrogen 13 mg/dL (7-18); Bicarbonate 29 mmol/L (21-32); Glucose Level 99 mg/dL (74-106); Magnesium 2.1 mg/dL (1.8-2.4); Potassium 3.9 mmol/L (3.5-5.1); Prealbumin 15.8 mg/dL (20-40); Sodium Level 137 mmol/L (136-145)
[2019-11-17] MEDS: LIDOCAINE 4% PATCH TOP SCH (06:56)
[2019-11-17] MEDS: MUPIROCIN 2% OINT 22GM TUBE TOP SCH ×2 (06:57→19:11)
[2019-11-17 07:14] LABS: Blood Morphology Comment NOT SEEN (NOT SEEN); Platelet Estimate ADEQ
[2019-11-17] MEDS: ANASTROZOLE 1 MG TAB PO SCH (07:55)
[2019-11-17] MEDS: SERTRALINE HCL 50 MG TAB PO SCH (07:55)
[2019-11-17] MEDS: GABAPENTIN 400 MG CAP PO SCH ×2 (07:55→19:11)
[2019-11-17] MEDS: APIXABAN 5 MG TABLET PO SCH ×2 (07:56→19:11)
[2019-11-17] MEDS: PROMOD 30 ML DOSE PO SCH ×2 (07:56→19:12)
[2019-11-17] MEDS: LACTOBACILLUS/ACIDOPHILUS TAB PO SCH ×2 (07:56→19:11)
[2019-11-17] MEDS: TRAMADOL HCL 50 MG TAB PO PRN ×2 (12:12→19:11)
[2019-11-17] MEDS: LORAZEPAM 0.5 MG TABLET PO PRN (19:11)
[2019-11-17] MEDS: MELATONIN 3 MG TABLET PO SCH (19:11)
[2019-11-17] MEDS: TRAZODONE 50 MG TABLET PO PRN (20:45)
[2019-11-18] MEDS: TRAMADOL HCL 50 MG TAB PO PRN ×3 (03:14→19:28)
[2019-11-18] MEDS: HYDROCODONE/APAP 5/325 MG TAB PO PRN ×2 (07:00→12:26)
[2019-11-18] MEDS: ANASTROZOLE 1 MG TAB PO SCH (07:48)
[2019-11-18] MEDS: GABAPENTIN 400 MG CAP PO SCH ×2 (07:48→19:28)
[2019-11-18] MEDS: LACTOBACILLUS/ACIDOPHILUS TAB PO SCH ×2 (07:48→19:28)
[2019-11-18] MEDS: APIXABAN 5 MG TABLET PO SCH ×2 (07:49→19:28)
[2019-11-18] MEDS: PROMOD 30 ML DOSE PO SCH ×2 (07:49→20:05)
[2019-11-18] MEDS: SERTRALINE HCL 50 MG TAB PO SCH (07:50)
[2019-11-18] MEDS: LIDOCAINE 4% PATCH TOP SCH (09:08)
[2019-11-18] MEDS: MUPIROCIN 2% OINT 22GM TUBE TOP SCH ×2 (09:09→20:55)
--- NOTE | 2019-11-18 13:44 | P.RH.PN ---
Estimated Length of Stay: 16 Expected Discharge Date: 11/22/19 Vital Signs: Last Vital Signs Temp 96.7 F L 11/18/19 07:25 Pulse 71 11/18/19 07:25 Resp 16 11/18/19 13:25 BP 140/69 11/18/19 07:25 Pulse Ox 97 11/18/19 13:25 Laboratory: Laboratory Last Values WBC 7.6 K/uL (4.3-10.9) D 11/17/19 05:41 RBC 3.68 M/uL (3.86-4.86) L 11/17/19 05:41 Hgb 10.7 g/dL (12.0-15.0) L 11/17/19 05:41 Hct 32.2 % (36.0-45.0) L 11/17/19 05:41 MCV 87.5 fL (80-100) 11/17/19 05:41 MCH 28.9 pg (27.0-35.0) 11/17/19 05:41 MCHC 33.1 g/dL (32.0-36.0) 11/17/19 05:41 RDW 14.3 % (12.1-15.2) 11/17/19 05:41 Plt Count 282 K/uL (152-406) D 11/17/19 05:41 MPV 8.7 fL (7.6-11.3) 11/17/19 05:41 Neutrophils % 35.0 % (41.7-73.7) L 11/17/19 05:41 Lymphocytes % 53.0 % (15.3-44.8) H 11/17/19 05:41 Monocytes % 8.6 % (3.3-12.3) 11/17/19 05:41 Eosinophils % 2.6 % (0-4.4) 11/17/19 05:41 Basophils % 0.8 % (0-1.3) 11/17/19 05:41 Absolute Neutrophils 2.7 K/uL (1.8-8.0) 11/17/19 05:41 Segmented Neutrophils 35 % (40-80) L 11/17/19 05:41 Absolute Lymphocytes 4.0 K/uL (0.7-4.9) 11/17/19 05:41 Lymphocytes 51 % (15-42) H 11/17/19 05:41 Monocytes 10 % (0-10) 11/17/19 05:41 Absolute Monocytes 0.7 K/uL (0.1-1.3) 11/17/19 05:41 Absolute Eosinophils 0.2 K/uL (0-0.5) 11/17/19 05:41 Absolute Basophils 0.1 K/uL (0-0.5) 11/17/19 05:41 Diff Path Review Yes 11/17/19 05:41 Atypical Lymphocytes 4 % 11/17/19 05:41 Morphology Comment Not seen (NOT SEEN) 11/17/19 05:41 Sodium 137 mmol/L (136-145) 11/17/19 05:41 Potassium 3.9 mmol/L (3.5-5.1) 11/17/19 05:41 Chloride 102 mmol/L (98-107) 11/17/19 05:41 Carbon Dioxide 29 mmol/L (21-32) 11/17/19 05:41 BUN 13 mg/dL (7-18) 11/17/19 05:41 Creatinine 0.62 mg/dL (0.55-1.3) 11/17/19 05:41 Estimated GFR > 90 mL/min (=/>90) 11/17/19 05:41 Glucose 99 mg/dL (74-106) 11/17/19 05:41 Calcium 8.8 mg/dL (8.5-10.1) 11/17/19 05:41 Magnesium 2.1 mg/dL (1.8-2.4) 11/17/19 05:41 Albumin 2.9 g/dL (3.4-5.0) L 11/17/19 05:41 Prealbumin 15.8 mg/dL (20-40) L 11/17/19 05:41 Urine Color Yellow 11/07/19 18:55 Urine Appearance Cloudy 11/07/19 18:55 Urine pH 6.0 (5.0-7.0) 11/07/19 18:55 Ur Specific [place] 1.015 (1.005-1.030) 11/07/19 18:55 Glucose (UA)(Auto) Negative (NEG) 11/07/19 18:55 Urine Ketones Negative (NEG) 11/07/19 18:55 Urine Blood 1+ (NEG) H 11/07/19 18:55 Urine Nitrite Negative (NEG) 11/07/19 18:55 Urine Bilirubin Negative (NEG) 11/07/19 18:55 Urine Urobilinogen 0.2 mg/dL (0.2-1.0) 11/07/19 18:55 Ur Leukocyte Esterase 3+ (NEG) H 11/07/19 18:55 Urine RBC 5-10 /HPF (NONE SEEN) H 11/07/19 18:55 Urine WBC 10-20 /HPF (<5) H 11/07/19 18:55 Ur Squamous Epith Cells 5-10 /HPF (NONE SEEN) H 11/07/19 18:55 Urine Bacteria <20 /HPF (<20) 11/07/19 18:55 Urine Mucus 2+ /HPF (NONE SEEN) 11/07/19 18:55 Urine Culture Reflexed Not needed 11/07/19 18:55 Urine Total Protein Negative (NEG) 11/07/19 18:55 Weight: 178 lb 9.6 oz Wound Present: No Closed Surgical Incision Present: No Negative Pressure Wound Therapy Present: No Physician Update: Labs reviewed and are stable. She doing better with her left are she has slightly less right arm pain. She is moderate assistance with her dressing. She is walking 250' with contact guard assistance. She is moderate to maximum assistance with cognitions. She will likely go to SNF next week. Functional Improvement: Patient continues to work on meeting and exceding short- term goals and further progressing toward long-term goals. Patient presents w/ cognition issues. Speech Therapy Update: Patient as nearly met ST goals; she continues to require MODA for recall, problem solving and safety. Supervision is required for MAX safety Summary: Patient's care plan and alterations supervisor goals have been reviewed and revised as necessary. Please see the Rehabilitation Signature page for all necessary signatures.
[2019-11-18] MEDS: DOCUSATE NA/SENNA CONC 1 TAB PO PRN (19:28)
[2019-11-18] MEDS: MELATONIN 3 MG TABLET PO SCH (20:05)
[2019-11-18] MEDS: TRAZODONE 50 MG TABLET PO SCH (20:05)
[2019-11-19] MEDS: HYDROCODONE/APAP 5/325 MG TAB PO PRN ×3 (00:24→18:47)
[2019-11-19 05:25] VITALS: BMI 25.0
[2019-11-19] MEDS: TRAMADOL HCL 50 MG TAB PO PRN ×3 (05:42→23:20)
[2019-11-19] MEDS: LIDOCAINE 4% PATCH TOP SCH (07:55)
[2019-11-19] MEDS: LACTOBACILLUS/ACIDOPHILUS TAB PO SCH ×2 (07:57→20:13)
[2019-11-19] MEDS: ANASTROZOLE 1 MG TAB PO SCH (07:57)
[2019-11-19] MEDS: GABAPENTIN 400 MG CAP PO SCH ×2 (07:57→20:13)
[2019-11-19] MEDS: SERTRALINE HCL 50 MG TAB PO SCH (07:58)
[2019-11-19] MEDS: APIXABAN 5 MG TABLET PO SCH ×2 (07:58→20:13)
[2019-11-19] MEDS: MUPIROCIN 2% OINT 22GM TUBE TOP SCH ×2 (08:00→20:15)
[2019-11-19] MEDS: PROMOD 30 ML DOSE PO SCH ×2 (08:08→20:14)
[2019-11-19] MEDS: TRAZODONE 50 MG TABLET PO SCH (20:13)
[2019-11-19] MEDS: MELATONIN 3 MG TABLET PO SCH (20:13)
[2019-11-19] MEDS: LORAZEPAM 0.5 MG TABLET PO PRN (20:14)
[2019-11-20] MEDS: HYDROCODONE/APAP 5/325 MG TAB PO PRN ×3 (02:25→15:57)
[2019-11-20] MEDS: TRAMADOL HCL 50 MG TAB PO PRN ×3 (04:36→19:44)
[2019-11-20] MEDS: LIDOCAINE 4% PATCH TOP SCH (06:50)
[2019-11-20] MEDS: MUPIROCIN 2% OINT 22GM TUBE TOP SCH ×2 (06:53→19:43)
[2019-11-20] MEDS: PROMOD 30 ML DOSE PO SCH ×2 (07:28→19:44)
[2019-11-20] MEDS: GABAPENTIN 400 MG CAP PO SCH ×2 (07:28→19:43)
[2019-11-20] MEDS: ANASTROZOLE 1 MG TAB PO SCH (07:28)
[2019-11-20] MEDS: APIXABAN 5 MG TABLET PO SCH ×2 (07:28→19:43)
[2019-11-20] MEDS: LACTOBACILLUS/ACIDOPHILUS TAB PO SCH ×2 (07:29→19:43)
[2019-11-20] MEDS: SERTRALINE HCL 50 MG TAB PO SCH (07:29)
[2019-11-20] MEDS: DOCUSATE NA/SENNA CONC 1 TAB PO PRN (19:44)
[2019-11-20] MEDS: TRAZODONE 50 MG TABLET PO SCH (21:48)
[2019-11-20] MEDS: MELATONIN 3 MG TABLET PO SCH (21:48)
--- NOTE | 2019-11-21 02:22 | FAST ---
[employer] FORM SHIFT START DATE/TIME: 11/20/2019 19:00 (CDT) SHIFT END DATE/TIME: 11/21/2019 07:00 (CDT) NAME PORSHA ANN DATE OF : 1940 DATE OF ADMISSION: 11/07/2019 15:22 (CDT) PHONE: AGE: 78 SSN# [id number] GENDER: Female ENCOUNTER PHYSICIAN: Dr. Marlon Barney M.D. ADMISSION DIAGNOSIS: - Debility 16 - Debility (16) Right humerus fracture, NWB. EATING: Not assessed/no information CODE: - ORAL HYGIENE: Not assessed/no information CODE: - TOILETING HYGIENE: TOILETING HYGIENE - STEP 1: Does the patient complete the activity by him/herself with no assistance (physical, verbal/nonverbal cueing, setup/clean-up)? No. TOILETING HYGIENE - STEP 2: Does the patient need only setup/clean-up assistance from one helper? No. TOILETING HYGIENE - STEP 3: Does the patient need only verbal/nonverbal cueing or touching/steadying/contact guard assistance fro m one helper? Yes. 1. [id number] ADMISSION PERFORMANCE: Supervision or touching assistance CODE: 04 BATHING: Not assessed/no information CODE: - DRESSING - UPPER BODY: Not assessed/no information CODE: - DRESSING - LOWER BODY: Not assessed/no information CODE: - PUTTING ON/TAKING OFF FOOTWEAR: Not assessed/no information CODE: - ROLL LEFT AND RIGHT: Not assessed/no information CODE: - SIT TO LYING: SIT TO LYING - STEP 1: Does the patient complete the activity by him/herself with no assistance (physical, verbal/nonverbal cueing, setup/clean-up)? No. SIT TO LYING - STEP 2: Does the patient need only setup/clean-up assistance from one helper? No. SIT TO LYING - STEP 3: Does the patient need only verbal/nonverbal cueing or touching/steadying/contact guard assistance fro m one helper? Yes. 1. [id number] ADMISSION PERFORMANCE: Supervision or touching assistance CODE: 04 LYING TO SITTING: LYING TO SITTING ON SIDE OF BED - STEP 1: Does the patient complete the activity by him/herself with no assistance (physical, verbal/nonverbal cueing, setup/clean-up)? No. LYING TO SITTING ON SIDE OF BED - STEP 2: Does the patient need only setup/clean-up assistance from one helper? No. LYING TO SITTING ON SIDE OF BED - STEP 3: Does the patient need only verbal/nonverbal cueing or touching/steadying/contact guard assistance fro m one helper? Yes. 1. [id number] ADMISSION PERFORMANCE: Supervision or touching assistance CODE: 04 SIT TO STAND: SIT TO STAND - STEP 1: Does the patient complete the activity by him/herself with no assistance (physical, verbal/nonverbal cueing, setup/clean-up)? No. SIT TO STAND - STEP 2: Does the patient need only setup/clean-up assistance from one helper? No. SIT TO STAND - STEP 3: Does the patient need only verbal/nonverbal cueing or touching/steadying/contact guard assistance fro m one helper? Yes. 1. [id number] ADMISSION PERFORMANCE: Supervision or touching assistance CODE: 04 TRANSFERS: BED, CHAIR: CHAIR/[id number] TRANSFER - STEP 1: Does the patient complete the activity by him/herself with no assistance (physical, verbal/nonverbal cueing, setup/clean-up)? No. CHAIR/[id number] TRANSFER - STEP 2: Does the patient need only setup/clean-up assistance from one helper? No. CHAIR/[id number] TRANSFER - STEP 3: Does the patient need only verbal/nonverbal cueing or touching/steadying/contact guard assistance fro m one helper? Yes. 1. [id number] ADMISSION PERFORMANCE: Supervision or touching assistance CODE: 04 TRANSFER TOILET: TOILET TRANSFER - STEP 1: Does the patient complete the activity by him/herself with no assistance (physical, verbal/nonverbal cueing, setup/clean-up)? No. TOILET TRANSFER - STEP 2: Does the patient need only setup/clean-up assistance from one helper? No. TOILET TRANSFER - STEP 3: Does the patient need only verbal/nonverbal cueing or touching/steadying/contact guard assistance fro m one helper? Yes. 1. [id number] ADMISSION PERFORMANCE: Supervision or touching assistance CODE: 04 TRANSFERS: CAR: Not assessed/no information CODE: - WALK 10 FEET: Not assessed/no information CODE: - 1 STEP (CURB): Not assessed/no information CODE: - PICKING UP OBJECT: Not assessed/no information CODE: - DOES THE PATIENT USE A WHEELCHAIR/SCOOTER? CODE: EXPR WHEEL 50 FEET WITH TWO TURNS: Not assessed/no information CODE: - INDICATE THE TYPE OF WHEELCHAIR/SCOOTER USED: CODE: EXPR WHEEL 150 FEET: Not assessed/no information CODE: - INDICATE THE TYPE OF WHEELCHAIR/SCOOTER USED: CODE: EXPR BLADDER AND BOWEL: H350. BLADDER CONTINENCE (3-DAY ASSESSMENT PERIOD): Incontinent less than daily (e.g., once or twice during the 3-day assessment period) CODE: 2 H400. BOWEL CONTINENCE (3-DAY ASSESSMENT PERIOD): Always continent CODE: 0
[2019-11-21] MEDS: HYDROCODONE/APAP 5/325 MG TAB PO PRN ×2 (04:24→11:15)
[2019-11-21] MEDS: MUPIROCIN 2% OINT 22GM TUBE TOP SCH ×2 (08:00→18:47)
[2019-11-21] MEDS: LIDOCAINE 4% PATCH TOP SCH (08:13)
[2019-11-21] MEDS: LACTOBACILLUS/ACIDOPHILUS TAB PO SCH ×2 (08:14→18:47)
[2019-11-21] MEDS: GABAPENTIN 400 MG CAP PO SCH ×2 (08:14→18:48)
[2019-11-21] MEDS: SERTRALINE HCL 50 MG TAB PO SCH (08:14)
[2019-11-21] MEDS: APIXABAN 5 MG TABLET PO SCH ×2 (08:14→18:47)
[2019-11-21] MEDS: ANASTROZOLE 1 MG TAB PO SCH (08:14)
[2019-11-21] MEDS: TRAMADOL HCL 50 MG TAB PO PRN ×3 (08:15→20:28)
[2019-11-21] MEDS: PROMOD 30 ML DOSE PO SCH ×2 (08:16→18:47)
[2019-11-21] MEDS: MELATONIN 3 MG TABLET PO SCH (18:47)
[2019-11-21] MEDS: ONDANSETRON 4 MG (ODT) TAB PO PRN (18:47)
[2019-11-21] MEDS: TRAZODONE 50 MG TABLET PO SCH (18:48)
--- NOTE | 2019-11-21 18:52 | R.PN ---
PROGRESS NOTES ENCOUNTER DATE AND TIME: 11/21/2019 18:46 (CDT) NAME PORSHA ANN DATE OF : 1940 DATE OF ADMISSION: 11/07/2019 15:22 (CDT) Right humerus fracture, [facility] COMPLAINT: Right humerus fracture SUBJECTIVE: Pt denied any Shortness of Breath. Pt denied any depression. CBC with differential shows mildly low Hgb of 10.7. Prealbumin is 15.8, glucose 99. Ambulated 750' with contact guard to standby assistance using a left hemiwalker. Right humerus pain is managed with a pain patch. VITAL SIGNS Temperature: 97.4 F SBP/DBP: 119/63 Pulse: 61 Resp: 18 [id number]].pdf MEDICATION ALLERGIES: No Known Drug Allergies (NKDA) ENVIRONMENTAL ALLERGIES: - Substance Allergies None Known - Other Allergies None Known NURSING: - Shower allowing shower ACTIVITIES OOB only with supervision THERAPIES: - Dietary and Nutrition Adequate Nutrition. Nutritional Education. Nutritional Supplements. PHYSICAL EXAM - Gen Alert and awake Lying in bed No apparent distress Oriented to: person, time, and place - Skin Mild bruising on the right forearm, held in a shoulder sling. Normacephalic - Eyes No abnormalities - ENMT No abnormalities - Neck No abnormalities - CVS RRR - Chest No abnormalities - Resp No wheezing - Abd Soft - GI + bowel sounds Deferred - No abnormalities - Ext Mild right lower extremity edema. - MSK 4+/5 weakness in right lower extremity - Neuro 4/5 strength right lower extremity. - Psych No abnormalities ASSESSMENT: Pt. is a 78 yo Right-handed white female.On 11/01/2019 she was admitted to [facility] with diagnosis Right humerus fracture.On 11/01/2019 she was admitted to [facility] with diagnosis Right humerus fracture, NWB.He r impairment category is Other orthopedic: 8.9Her impairment category is Debility 16 - Debility (16) .Pre-morbidly, Pt. was independent/mod-I in Safety Awareness, Social Cognition, Transfers Control, an d Sphincter Control; and she had good Communication and Safety Awareness.Currently, she has deficits of Safety Awareness, Self-Care, Endurance, Locomotion, and Sphincter Control.Pt. is now referred to [facility] for acute in-patient rehabilitation in order to maximize patient's f unctional independence in activities of daily living, strength, ROM, and mobility.- Rehab Goal Patient has realistic goal of being discharged at assistance level 6-Chase to reside at Home with Pt self. Porsha Ann is a 78 year old female who lives at home independently. She has pmh of lower extremity, DVT, back pain and depression who presented to the emergency room secondary to right upper extremity swelling and tenderness. Cellulitis of the right arm. Patient was found to have an acute left popliteal DVT as well as nonpurulent cellulitis. She was Admitted at [facility] on 11/01/19.Patient states that she was adherent to her antibiotics when she went home from her first ER visit. She is now being transferred to [facility] Inpatient rehabilitation and is medically stable with relatively stable labs. He is now medically stable but in need of 24 hour nursing, doctor supervision and oversight while receiving active and ongoing intensive hours of therapy a day/15 hours per week and receive care with intensive interdisciplinary approach. COVID-19 screening performed; spoke with patient via phone. Patient denies new onset of fever, cough, difficulty breathing, sore throat, body aches and non-allergy nasal congestion in the past 24 hours. Patient denies travel outside of [place] in the past 14 days. Patient denies any contact with someone who has a confirmed diagnosis of or is under investigation for COVID-19 in the past 14 days. Patient has been tested negative for COVID- 19.MDM/PLAN: - Physical Therapy Weakness - to improve, our physical therapists will perform initial evaluation of pt's status upon a dmission and devise an individualized program for Aquatic Therapy, Neuromuscular Reeducation, and Str engthening Need in caregiver upon discharge - to improve, our physical therapists will perform initial evaluati on of pt's status upon admission and devise an individualized program for Caregiver Training Poor endurance - to improve, our physical therapists will perform initial evaluation of pt's status upon admission and devise an individualized program for Endurance Training Gait dysfunction - to improve, our physical therapists will perform initial evaluation of pt's statu s upon admission and devise an individualized program for Gait Training, and Wheel Chair mobility Need for home safety evaluation - to improve, our physical therapists will perform initial evaluatio n of pt's status upon admission and devise an individualized program for Home Evaluation New precaution - to improve, our physical therapists will perform initial evaluation of pt's status upon admission and devise an individualized program for Patient precaution education Edema - to improve, our physical therapists will perform initial evaluation of pt's status upon admi ssion and devise an individualized program for Elevation Training, and Lymphedema Therapy - Occupational Therapy Weakness - to improve, our occupation therapists will perform initial evaluation of pt's status upon admission and devise an individualized program for Aquatic Therapy, Balance, Endurance, UE ROM, and UE strengthening ADL deficits - to improve, our occupation therapists will perform initial evaluation of pt's status upon admission and devise an individualized program for Bathing, Bed mobility, Community Reintegratio n, Cooking, Dressing, Eating, Fine Motor Skills, Grooming, Homemaking, Kitchen Mobility, Laundry, Pat ient Education, Safety Awareness, Splinting - Positioning, Transfers(Toilet, Tub, Shower), and Wheel Chair Management Need for mall plant caretaker - to improve, our occupation therapists will perform initial evaluation of pt's status upon admission and devise an individualized program for Caregiver Training - Other See attached MAR (Medication Administration Record) - Diet Type Continue Regular - Diet - Liquid Texture Continue Regular - Tube Feed Continue N/A - Diet - Solid Texture Continue Regular - Shower allowing shower - Balance for Weakness - Bed mobility for ADL deficits FUNCTIONAL STATUS: UPDATED AT WEEKLY TEAM CONFERENCE - Bladder Same accident frequency: 7-Ind - No accidents in the past 7 days - Bowel Same accident frequency: 7-Ind - No accidents in the past 7 days - Walking Same score based on distance walked: 0(N/A) Same score based on distance walked: 1(<=50ft) - Wheelchair Same score based on distance traveled: 0(N/A) FUNCTIONAL STATUS: - Self-Care A. Eating Ind B. Grooming Chase C. Bathing Juan D. Dressing - Upper Juan E. Dressing - Lower modA F. Toileting Juan - Sphincter Control G. Bladder control Chase H. Bowel control Chase - Transfers Control I. Bed/Chair/Wheelchair Juan J. Toilet Juan K. Tub/Shower modA - Locomotion L. Walk/Wheelchair (B) Juan M. Stairs maxA - Communication N. Comprehension (B) Chase O. Expression (B) Chase - Social Cognition P. Social Interaction Ind Q. Problem Solving sup R. Memory Chase - Endurance Fair - Balance Fair - Safety Awareness Fair QI SCORES: - Self-Care A. Eating 03-Partial/moderate assistance B. Oral hygiene 03-Partial/moderate assistance C. Toileting hygiene 03-Partial/moderate assistance E. Shower/bathe self 03-Partial/moderate assistance F. Upper body dressing 03-Partial/moderate assistance G. Lower body dressing 02-Substantial/maximal assistance H. Putting on/taking off footwear 88-Not attempted due to medical condition or safety concerns - Mobility A. Roll left and right 03-Partial/moderate assistance B. Sit to lying 03-Partial/moderate assistance C. Lying to sitting on side of bed 03-Partial/moderate assistance D. Sit to stand 03-Partial/moderate assistance E. Chair/[id number] transfer 03-Partial/moderate assistance F. Toilet transfer 03-Partial/moderate assistance G. Car transfer 88-Not attempted due to medical condition or safety concerns I. Walk 10 feet 88-Not attempted due to medical condition or safety concerns J. Walk 50 feet with two turns 88-Not attempted due to medical condition or safety concerns K. Walk 150 feet 88-Not attempted due to medical condition or safety concerns L. Walking 10 feet on uneven surfaces 88-Not attempted due to medical condition or safety concerns M. 1 step (curb) 88-Not attempted due to medical condition or safety concerns N. 4 steps 88-Not attempted due to medical condition or safety concerns O. 12 steps 88-Not attempted due to medical condition or safety concerns P. Picking up object 03-Partial/moderate assistance R. Wheel 50 feet with two turns 88-Not attempted due to medical condition or safety concerns S. Wheel 150 feet 10-Not attempted due to environmental limitations - Bladder and Bowel Bladder continence 0-Always continent Bowel continence 0-Always continent - Endurance Fair - Balance Fair - Safety Awareness Fair CURRENT [facility]. DEFICITS: Self-Care, Safety Awareness, Endurance, Balance, and Mobility SIGNATURE PANEL: (CDT)
[2019-11-21] MEDS: LORAZEPAM 0.5 MG TABLET PO PRN (19:56)
[2019-11-22] MEDS: TRAMADOL HCL 50 MG TAB PO PRN ×3 (04:10→12:34)
[2019-11-22] MEDS: LIDOCAINE 4% PATCH TOP SCH (07:21)
[2019-11-22] MEDS: MUPIROCIN 2% OINT 22GM TUBE TOP SCH (07:22)
[2019-11-22] MEDS: GABAPENTIN 400 MG CAP PO SCH (08:01)
[2019-11-22] MEDS: PROMOD 30 ML DOSE PO SCH (08:01)
[2019-11-22] MEDS: SERTRALINE HCL 50 MG TAB PO SCH (08:02)
[2019-11-22] MEDS: ANASTROZOLE 1 MG TAB PO SCH (08:02)
[2019-11-22] MEDS: LACTOBACILLUS/ACIDOPHILUS TAB PO SCH (08:02)
[2019-11-22] MEDS: APIXABAN 5 MG TABLET PO SCH (08:02)
[2019-11-22 08:03] VITALS: BP 118/51; TEMP 97.6
[2019-11-22] MEDS: HYDROCODONE/APAP 5/325 MG TAB PO PRN ×2 (10:55→16:18)
--- NOTE | 2019-11-22 17:18 | R.PN ---
PROGRESS NOTES ENCOUNTER DATE AND TIME: 11/22/2019 17:13 (CDT) NAME PORSHA ANN DATE OF : 1940 DATE OF ADMISSION: 11/07/2019 15:22 (CDT) Right humerus fracture, NWBCHIEF COMPLAINT: Right humerus fracture SUBJECTIVE: Pt denied any Shortness of Breath. Pt denied any depression. CBC with differential shows mildly low Hgb of 10.7. Prealbumin is 15.8, glucose 99. Ambulated 500' with contact guard assistance using a left kurt-walker. Mobilized wheelchair 500' with standby assistance. Right humerus pain is managed with a pain patch. VITAL SIGNS Temperature: 97.6 F SBP/DBP: 118/51 Pulse: 70 Resp: 16 [id number]].pdf MEDICATION ALLERGIES: No Known Drug Allergies (NKDA) ENVIRONMENTAL ALLERGIES: - Substance Allergies None Known - Other Allergies None Known NURSING: - Shower allowing shower ACTIVITIES OOB only with supervision THERAPIES: - Dietary and Nutrition Adequate Nutrition. Nutritional Education. Nutritional Supplements. PHYSICAL EXAM - Gen Alert and awake Lying in bed No apparent distress Oriented to: person, time, and place - Skin Mild bruising on the right forearm, held in a shoulder sling. Normacephalic - Eyes No abnormalities - ENMT No abnormalities - Neck No abnormalities - CVS RRR - Chest No abnormalities - Resp No wheezing - Abd Soft - GI + bowel sounds Deferred - No abnormalities - Ext Mild right lower extremity edema. - MSK 4+/5 weakness in right lower extremity - Neuro 4/5 strength right lower extremity. - Psych No abnormalities ASSESSMENT: Pt. is a 78 yo Right-handed white female.On 11/01/2019 she was admitted to [facility] with diagnosis Right humerus fracture.On 11/01/2019 she was admitted to [facility] with diagnosis Right humerus fracture, NWB.He r impairment category is Other orthopedic: 8.9Her impairment category is Debility 16 - Debility (16) .Pre-morbidly, Pt. was independent/mod-I in Safety Awareness, Social Cognition, Transfers Control, an d Sphincter Control; and she had good Communication and Safety Awareness.Currently, she has deficits of Safety Awareness, Self-Care, Endurance, Locomotion, and Sphincter Control.Pt. is now referred to [facility] for acute in-patient rehabilitation in order to maximize patient's f unctional independence in activities of daily living, strength, ROM, and mobility.- Rehab Goal Patient has realistic goal of being discharged at assistance level 6-Chase to reside at Home with Pt self. Porsha Ann is a 78 year old female who lives at home independently. She has pmh of lower extremity, DVT, back pain and depression who presented to the emergency room secondary to right upper extremity swelling and tenderness. Cellulitis of the right arm. Patient was found to have an acute left popliteal DVT as well as nonpurulent cellulitis. She was Admitted at [facility] on 11/01/19.Patient states that she was adherent to her antibiotics when she went home from her first ER visit. She is now being transferred to [facility] Inpatient rehabilitation and is medically stable with relatively stable labs. He is now medically stable but in need of 24 hour nursing, doctor supervision and oversight while receiving active and ongoing intensive hours of therapy a day/15 hours per week and receive care with intensive interdisciplinary approach. COVID-19 screening performed; spoke with patient via phone. Patient denies new onset of fever, cough, difficulty breathing, sore throat, body aches and non-allergy nasal congestion in the past 24 hours. Patient denies travel outside of [place] in the past 14 days. Patient denies any contact with someone who has a confirmed diagnosis of or is under investigation for COVID-19 in the past 14 days. Patient has been tested negative for COVID- 19.MDM/PLAN: - Physical Therapy Weakness - to improve, our physical therapists will perform initial evaluation of pt's status upon a dmission and devise an individualized program for Aquatic Therapy, Neuromuscular Reeducation, and Str engthening Need in caregiver upon discharge - to improve, our physical therapists will perform initial evaluati on of pt's status upon admission and devise an individualized program for Caregiver Training Poor endurance - to improve, our physical therapists will perform initial evaluation of pt's status upon admission and devise an individualized program for Endurance Training Gait dysfunction - to improve, our physical therapists will perform initial evaluation of pt's statu s upon admission and devise an individualized program for Gait Training, and Wheel Chair mobility Need for home safety evaluation - to improve, our physical therapists will perform initial evaluatio n of pt's status upon admission and devise an individualized program for Home Evaluation New precaution - to improve, our physical therapists will perform initial evaluation of pt's status upon admission and devise an individualized program for Patient precaution education Edema - to improve, our physical therapists will perform initial evaluation of pt's status upon admi ssion and devise an individualized program for Elevation Training, and Lymphedema Therapy - Occupational Therapy Weakness - to improve, our occupation therapists will perform initial evaluation of pt's status upon admission and devise an individualized program for Aquatic Therapy, Balance, Endurance, UE ROM, and UE strengthening ADL deficits - to improve, our occupation therapists will perform initial evaluation of pt's status upon admission and devise an individualized program for Bathing, Bed mobility, Community Reintegratio n, Cooking, Dressing, Eating, Fine Motor Skills, Grooming, Homemaking, Kitchen Mobility, Laundry, Pat ient Education, Safety Awareness, Splinting - Positioning, Transfers(Toilet, Tub, Shower), and Wheel Chair Management Need for health care administrator - to improve, our occupation therapists will perform initial evaluation of pt's status upon admission and devise an individualized program for Caregiver Training - Other See attached MAR (Medication Administration Record) - Diet Type Continue Regular - Diet - Liquid Texture Continue Regular - Tube Feed Continue N/A - Diet - Solid Texture Continue Regular - Shower allowing shower - Balance for Weakness - Bed mobility for ADL deficits FUNCTIONAL STATUS: UPDATED AT WEEKLY TEAM CONFERENCE - Bladder Same accident frequency: 7-Ind - No accidents in the past 7 days - Bowel Same accident frequency: 7-Ind - No accidents in the past 7 days - Walking Same score based on distance walked: 0(N/A) Same score based on distance walked: 1(<=50ft) - Wheelchair Same score based on distance traveled: 0(N/A) FUNCTIONAL STATUS: - Self-Care A. Eating Ind B. Grooming Chase C. Bathing Juan D. Dressing - Upper Juan E. Dressing - Lower modA F. Toileting Juan - Sphincter Control G. Bladder control Chase H. Bowel control Chase - Transfers Control I. Bed/Chair/Wheelchair Juan J. Toilet Juan K. Tub/Shower modA - Locomotion L. Walk/Wheelchair (B) Juan M. Stairs maxA - Communication N. Comprehension (B) Chase O. Expression (B) Chase - Social Cognition P. Social Interaction Ind Q. Problem Solving sup R. Memory Chase - Endurance Fair - Balance Fair - Safety Awareness Fair QI SCORES: - Self-Care A. Eating 03-Partial/moderate assistance B. Oral hygiene 03-Partial/moderate assistance C. Toileting hygiene 03-Partial/moderate assistance E. Shower/bathe self 03-Partial/moderate assistance F. Upper body dressing 03-Partial/moderate assistance G. Lower body dressing 02-Substantial/maximal assistance H. Putting on/taking off footwear 88-Not attempted due to medical condition or safety concerns - Mobility A. Roll left and right 03-Partial/moderate assistance B. Sit to lying 03-Partial/moderate assistance C. Lying to sitting on side of bed 03-Partial/moderate assistance D. Sit to stand 03-Partial/moderate assistance E. Chair/[id number] transfer 03-Partial/moderate assistance F. Toilet transfer 03-Partial/moderate assistance G. Car transfer 88-Not attempted due to medical condition or safety concerns I. Walk 10 feet 88-Not attempted due to medical condition or safety concerns J. Walk 50 feet with two turns 88-Not attempted due to medical condition or safety concerns K. Walk 150 feet 88-Not attempted due to medical condition or safety concerns L. Walking 10 feet on uneven surfaces 88-Not attempted due to medical condition or safety concerns M. 1 step (curb) 88-Not attempted due to medical condition or safety concerns N. 4 steps 88-Not attempted due to medical condition or safety concerns O. 12 steps 88-Not attempted due to medical condition or safety concerns P. Picking up object 03-Partial/moderate assistance R. Wheel 50 feet with two turns 88-Not attempted due to medical condition or safety concerns S. Wheel 150 feet 10-Not attempted due to environmental limitations - Bladder and Bowel Bladder continence 0-Always continent Bowel continence 0-Always continent - Endurance Fair - Balance Fair - Safety Awareness Fair CURRENT [facility]. DEFICITS: Self-Care, Safety Awareness, Endurance, Balance, and Mobility SIGNATURE PANEL: (CDT)
== END 2019-11-22 17:50 | DRG 561 ==
LOC: 5TH 17:22
PROVIDERS: ADMIT Psychiatry & Neurology Neurology with Special Qualifications in Child Neurology; ATTEND Psychiatry & Neurology Neurology with Special Qualifications in Child Neurology
DX: S42.301D Unspecified fracture of shaft of humerus, right arm, subsequent encounter for fracture with routine healing (principal); Z60.2 Problems related to living alone; Z86.718 Personal history of other venous thrombosis and embolism; Z11.59 Encounter for screening for other viral diseases
CPT/HCPCS: 36415; 80048; 81001; 82040; 83735; 84134; 85025; 87086; 87088; 92507; 92523; 92526; 97110; 97116; 97127; 97161; 97530; 97542; U0002